=== PATIENT | female | born 1955 | race Caucasian/White ===

== ENCOUNTER 2017-02-07 23:22 | Observation (INO) | payer MEDICAID, MEDICARE, OTHER ==
[2017-02-08 00:38] LABS: Calcium 8.7 mg/dL (8.6-10.3); EGFR African American 91.5 (>60); EGFR Non-African American 71.1 (>60); Globulin 3.3 g/dL (2-4); Potassium 3.8 mmol/L (3.5-5.0); Total Bilirubin 0.5 mg/dL (0.2-1.0); Total Protein 7.3 g/dL (6.4-8.9)
[2017-02-08 00:40] LABS: Troponin I 0.01 ng/mL (<0.04)
[2017-02-08] MEDS ORDERED: methylPREDNISolone 125 MG* 2 ML VIAL IV ONE (00:41)
[2017-02-08] MEDS ORDERED: Albuterol/Ipratropium NEB.SOL* Albuterol 2.5 MG/Ipratropium 0.5 MG 3 ML INH ONE (00:41)
[2017-02-08] MEDS ORDERED: Azithromycin IV* 500 MG ADVAN VIAL IVPB ONE (00:41)
[2017-02-08] MEDS ORDERED: cefTRIAXone(*) 1 GM in NS 0.9% 50 ML* 50 ML IVPB ONE (00:41)
[2017-02-08 00:42] LABS: Hematocrit 42 % (35-47); Hemoglobin 14.7 g/dl (12.0-16.0); Mean Corpuscular HGB Conc 35 g/dl (31-36); Mean Corpuscular Hemoglobin 31 pg (27-31); Mean Corpuscular Volume 90 fL (80-97); Mean Platelet Volume 10 um3 (7.4-10.4); Red Blood Count 4.71 10^6/ul (4.0-5.4); Red Cell Distribution Width 13 % (10.5-15); White Blood Count 7.8 10^3/ul (3.5-10.8)
[2017-02-08 00:48] LABS: Comments Flag Yes
[2017-02-08 00:50] LABS: Add Diff/Slide Review? Slide Review Added
[2017-02-08] MEDS: Oseltamivir CAP* 75 MG PO SCH ×3 (03:10→21:07)
[2017-02-08] MEDS ORDERED: Morphine ORAL.SOLN 10 mg* 2 MG/ML UDC 5 ml PO PRN (04:41)
[2017-02-08] MEDS: NS 0.9% w/ 20 Meq KCL 1000 ML* 1,000 ML IV SCH ×2 (05:32→14:18)
[2017-02-08] MEDS: Insulin GLARGINE(*) 1 UNITS UNIT SUBCUT SCH (06:10)
--- NOTE | 2017-02-08 07:40 | PN ---
Subjective Date of Service: 02/08/17 Interval History: Ms. Jolly complains of feeling tired and "worn out." She also reports cough that is nonproductive. She is a continued 1/2 pack a day smoker. She denies other complaint including chest pain, nausea, or abdominal pain and is tolerating oral intake well. Objective Active Medications: Atorvastatin Calcium (Lipitor*) 20 mg PO 1700 [facility] Celecoxib (Celebrex Cap*) 200 mg PO QAM [facility] Glipizide (Glucotrol Xl*) 5 mg PO QAM [facility] Heparin Sodium (Porcine) (Heparin Vial(*)) 5,000 units SUBCUT Q12HR [facility] Ceftriaxone Sodium 1,000 mg/ (Sodium Chloride) 50 mls @ 200 mls/hr IVPB Q24H [facility] Azithromycin 500 mg/ Sodium (Chloride) 250 mls @ 250 mls/hr IVPB Q24H [facility] Potassium Chloride/Sodium Chloride (Ns 0.9% W/ 20 Meq Kcl 1000 Ml*) 1,000 mls @ 125 mls/hr IV PER RATE [facility] Insulin Glargine (Lantus(*)) 30 units SUBCUT Q24H [facility] Insulin Human Lispro (Humalog*) 0 units SUBCUT ACHS [facility] Lisinopril (Prinivil Tab*) 5 mg PO DAILY [facility] Metformin HCl (Glucophage*) 250 mg PO 0800,1700 [facility] Morphine Sulfate (Ms Contin(*)) 60 mg PO BID [facility] Morphine Sulfate (Morphine Oral.Soln 10 Mg*) 15 mg PO Q4H PRN Omeprazole (Prilosec Cap*) 20 mg PO DAILY [facility] Oseltamivir Phosphate (Tamiflu Cap*) 75 mg PO BID [facility] Prednisone (Deltasone Tab*) 60 mg PO DAILY [facility] Vital Signs 02/08/17 02/08/17 02/08/17 04:23 04:31 05:24 Temperature 98.1 F 97.8 F Pulse Rate 89 94 97 Respiratory 16 13 21 Rate Blood Pressure 108/64 104/49 123/62 (mmHg) O2 Sat by Pulse 93 97 Oximetry Oxygen Devices in Use Now: Nasal Cannula Appearance: Female lying in bed in NAD, drowsy but answers all questions appropriately Eyes: No Scleral Icterus Ears/Nose/Mouth/Throat: Mucous Membranes Moist Neck: NL Appearance and Movements; NL JVP, Trachea Midline Respiratory: Symmetrical Chest Expansion and Respiratory Effort, - - rhonchi to right base Cardiovascular: NL Sounds; No Murmurs; No JVD, No Edema Abdominal: NL Sounds; No Tenderness; No Distention Lymphatic: No Cervical Adenopathy Extremities: No Edema Skin: No Rash or Ulcers Neurological: NL Muscle Strength and Tone, - - Drowsy but oriented x 3 Nutrition: Taking PO's Result Diagrams: 02/08/17 00:09 02/08/17 00:09 Additional Lab and Data: Lab Results 02/08/17 02/08/17 02/08/17 Range/Units 00:09 00:09 00:09 WBC 7.8 (3.5-10.8) 10^3/ul RBC 4.71 (4.0-5.4) 10^6/ul Hgb 14.7 (12.0-16.0) g/dl Hct 42 (35-47) % MCV 90 (80-97) fL MCH 31 (27-31) pg MCHC 35 (31-36) g/dl RDW 13 (10.5-15) % Plt Count 87 L (150-450) 10^3/ul MPV 10 (7.4-10.4) um3 Neut % (Auto) 71.9 (38-83) % Lymph % (Auto) 19.1 L (25-47) % [place] % (Auto) 7.8 (1-9) % Eos % (Auto) 0.5 (0-6) % Baso % (Auto) 0.7 (0-2) % Absolute Neuts (auto) 5.6 (1.5-7.7) 10^3/ul Absolute Lymphs (auto) 1.5 (1.0-4.8) 10^3/ul Absolute Monos (auto) 0.6 (0-0.8) 10^3/ul Absolute Eos (auto) 0 (0-0.6) 10^3/ul Absolute Basos (auto) 0.1 (0-0.2) 10^3/ul Absolute Nucleated RBC 0 10^3/ul Nucleated RBC % 0.1 INR (Anticoag Therapy) 0.96 (0.89-1.11) APTT 31.0 (26.0-36.3) seconds Sodium 132 L (133-145) mmol/L Potassium 3.8 (3.5-5.0) mmol/L Chloride 99 L (101-111) mmol/L Carbon Dioxide 27 (22-32) mmol/L Anion Gap 6 (2-11) mmol/L BUN 18 (6-24) mg/dL Creatinine 0.82 (0.51-0.95) mg/dL Est GFR ( Amer) 91.5 (>60) Est GFR (Non-Af Amer) 71.1 (>60) BUN/Creatinine Ratio 22.0 H (8-20) Glucose 181 H (70-100) mg/dL Lactic Acid (0.5-2.0) mmol/L Calcium 8.7 (8.6-10.3) mg/dL Total Bilirubin 0.50 (0.2-1.0) mg/dL AST 24 (13-39) U/L ALT 29 (7-52) U/L Alkaline Phosphatase 69 (34-104) U/L Troponin I 0.01 (<0.04) ng/mL Total Protein 7.3 (6.4-8.9) g/dL Albumin 4.0 (3.2-5.2) g/dL Globulin 3.3 (2-4) g/dL Albumin/Globulin Ratio 1.2 (1-3) 02/08/17 Range/Units 00:09 WBC (3.5-10.8) 10^3/ul RBC (4.0-5.4) 10^6/ul Hgb (12.0-16.0) g/dl Hct (35-47) % MCV (80-97) fL MCH (27-31) pg MCHC (31-36) g/dl RDW (10.5-15) % Plt Count (150-450) 10^3/ul MPV (7.4-10.4) um3 Neut % (Auto) (38-83) % Lymph % (Auto) (25-47) % [place] % (Auto) (1-9) % Eos % (Auto) (0-6) % Baso % (Auto) (0-2) % Absolute Neuts (auto) (1.5-7.7) 10^3/ul Absolute Lymphs (auto) (1.0-4.8) 10^3/ul Absolute Monos (auto) (0-0.8) 10^3/ul Absolute Eos (auto) (0-0.6) 10^3/ul Absolute Basos (auto) (0-0.2) 10^3/ul Absolute Nucleated RBC 10^3/ul Nucleated RBC % INR (Anticoag Therapy) (0.89-1.11) APTT (26.0-36.3) seconds Sodium (133-145) mmol/L Potassium (3.5-5.0) mmol/L Chloride (101-111) mmol/L Carbon Dioxide (22-32) mmol/L Anion Gap (2-11) mmol/L BUN (6-24) mg/dL Creatinine (0.51-0.95) mg/dL Est GFR ( Amer) (>60) Est GFR (Non-Af Amer) (>60) BUN/Creatinine Ratio (8-20) Glucose (70-100) mg/dL Lactic Acid 0.9 (0.5-2.0) mmol/L Calcium (8.6-10.3) mg/dL Total Bilirubin (0.2-1.0) mg/dL AST (13-39) U/L ALT (7-52) U/L Alkaline Phosphatase (34-104) U/L Troponin I (<0.04) ng/mL Total Protein (6.4-8.9) g/dL Albumin (3.2-5.2) g/dL Globulin (2-4) g/dL Albumin/Globulin Ratio (1-3) Assess/Plan/Problems-Billing Assessment: Ms. Jolly is a 61 yo female with a PMH of DM, who was admitted on 02/07/17 with influenza. - Patient Problems (1) Influenza B Comment: T max 101.3, no leukocytosis. Continue tamiflu. Continue IV fluids x 1 additional liter. (2) Pneumonia Comment: R lower lobe with rhonchi, ? overlying bacterial pneumonia. Continue ceftriaxone and azithromcyin. Continue prednisone. (3) COPD (chronic obstructive pulmonary disease) Comment: No evidence of acute exaberation. (4) Diabetes Comment: BGs elevated. Continue lantus in substitute for NPH with lispro SSI coverage, adjust as needed. (5) Hyperlipidemia Comment: Continue atorvastatin. (6) Chronic pain Comment: Continue morphine. (7) Hypertension Comment: BP well controlled, continue lisinopril. (8) Full code status (9) DVT prophylaxis Comment: Heparin SQ. Status and Disposition: Inpatient. Anticipate discharge to home when medically stable.
--- NOTE | 2017-02-08 07:45 | RAD ---
HISTORY: Dizziness COMPARISONS: None VIEWS:1: Single frontal portable view of the chest at 12:20 AM FINDINGS: LINES AND TUBES: None. CARDIOMEDIASTINAL SILHOUETTE: The cardiomediastinal silhouette is normal for portable technique. PLEURA: The costophrenic angles are sharp. No pleural abnormalities are noted. LUNG PARENCHYMA: The lungs are clear. ABDOMEN: The upper abdomen is clear. There is no subphrenic gas. BONES AND SOFT TISSUES: No bone or soft tissue abnormalities are noted. IMPRESSION: NO ACTIVE CARDIOPULMONARY DISEASE.
[2017-02-08] MEDS ORDERED: metFORMIN* 500 MG TAB PO SCH (08:00)
[2017-02-08] MEDS ORDERED: Acetaminophen TAB* 325 MG PO PRN (08:11)
[2017-02-08] MEDS: Insulin LISPRO* 1 UNITS UNIT SUBCUT SCH ×4 (08:25→22:06)
[2017-02-08] MEDS: Heparin VIAL(*) 5000 UNITS/ML VIAL (FIVE THOUSAND) SUBCUT SCH ×2 (08:26→21:11)
[2017-02-08] MEDS: Morphine TAB Extended Release (*) 30 MG TAB.ER PO SCH ×2 (08:27→21:07)
[2017-02-08] MEDS: predniSONE TAB* 20 MG PO SCH (08:28)
[2017-02-08] MEDS: Lisinopril TAB* 5 MG PO SCH (08:29)
[2017-02-08] MEDS: celeCOXIB CAP* 200 MG PO SCH (08:43)
[2017-02-08] MEDS ORDERED: glipiZIDE TAB.XL* 5 MG PO SCH (09:00)
[2017-02-08] MEDS: Omeprazole CAP* 20 MG PO SCH (09:28)
[2017-02-08] MEDS ORDERED: Docusate CAP* 100 MG PO PRN (09:56)
[2017-02-08] MEDS ORDERED: Senna TAB PO PRN (09:56)
[2017-02-08] MEDS ORDERED: Polyethylene Glycol 3350* 17 GM PACKET PO PRN (09:57)
[2017-02-08] MEDS ORDERED: Atorvastatin* 20 MG TAB PO SCH (17:00)
--- NOTE | 2017-02-08 20:48 | ED ---
Chetan Mckeon Alok, scribed for Kapil Blair MD on 02/08/17 at 0058 . Dizziness - HPI Summary HPI Summary: 61F presents to the ED for dizziness and lightheadedness today. Pt states she has had a non-productive cough as well as rhinorrhea, myaliga, and a YAP for the past 3 days. Pt also notes nausea and ear pain. Pt presents with a fever of 101.3F. Pt denies vomit or diarrhea. PMHx includes IDDM and HLD. Pt smokes tobacco cigarettes. - History Of Current Complaint Chief Complaint: EDDizziness Stated Complaint: WEAKNESS/AMS Time Seen by Provider: 02/08/17 00:30 Hx Obtained From: Patient Onset/Duration: Still Present Timing: Constant Severity Initially: Moderate Severity Currently: Moderate Character: Lightheaded, Dizzy Associated Signs And Symptoms: Positive: Nausea, Fever - 101.3, Other: - cough, rhinorrhea, myalgia, YAP, ear pain - Allergies/Home Medications Allergies/Adverse Reactions: Allergies Allergy/AdvReac Type Severity Reaction Status Date / Time No Known Allergies Allergy Verified 02/08/17 02:35 Home Medications: Home Medications Atorvastatin* [Lipitor*] 20 mg PO 1700 02/08/17 [History Confirmed 02/08/17] Insulin Lispro Protamine & Lis [Humalog Mix 75/25 (75-25) 100 Unit/ml] 26 SUBCUT BID 02/08/17 [History] Lisinopril [Zestril 5 MG-] 5 mg PO DAILY 02/08/17 [History Confirmed 02/08/17] Omeprazole [Prilosec] 20 mg PO 02/08/17 [History] PMH/Surg Hx/FS Hx/Imm Hx Endocrine/Hematology History: Reports: Hx Diabetes - Type 2-ORAL MEDICATION, Hx Anemia - BLOOD TRANSFUSION A BABY Respiratory History: Reports: Hx Chronic Obstructive Pulmonary Disease (COPD) GI History: Reports: Hx Gastroesophageal Reflux Disease - IN THE PAST-1996 History: Reports: Hx Kidney Infection - LAST 6 MONTHS AGO Musculoskeletal History: Reports: Hx Arthritis - RHEMATOID, Hx Back Problems - chronic pain, multiple surgeries Sensory History: Reports: Hx Contacts or Glasses - GLASSES Denies: Hx Hearing Aid Opthamlomology History: Reports: Hx Contacts or Glasses - GLASSES Neurological History: Reports: Other Neuro Impairments/Disorders - NERVE STIMULATOR- PLACED ON THE LEFT SIDE Psychiatric History: Reports: Hx Anxiety - HX OF IN 2008- NOT CURRENTLY, Hx Depression - HC OF IN 2008- NOT CURRENTLY - Surgical History Surgery Procedure, Year, and Place: Total hysterectomy-[place]. bilateral oopherectomy. cholecystectomy-2007. multiple back surgeries.1997, 1999,. 2006 -DORSAL COLUMN STIMULATOR IMPLANT. LEFT KNEE ARTHROSCOPY Hx Anesthesia Reactions: No Infectious Disease History: No Infectious Disease History: Denies: Traveled Outside the [place] in Last 30 Days - Family History Known Family History: Positive: Other - No - Malignant hypothermia - Social History Occupation: Disabled Alcohol Use: None Substance Use Type: Reports: None Hx Tobacco Use: Yes Smoking Status (MU): Light Every Day Tobacco Smoker Review of Systems Positive: Fever. Negative: Chills Negative: Erythema Positive: Ear Ache. Negative: Sore Throat Negative: Chest Pain Positive: Cough. Negative: Shortness Of Breath Positive: Nausea. Negative: Abdominal Pain, Vomiting, Diarrhea Negative: dysuria, hematuria Positive: Myalgia. Negative: Edema Negative: Rash Neurological: Other - Dizziness, Lightheadedness Positive: Headache All Other Systems Reviewed And Are Negative: Yes Physical Exam - Summary Physical Exam Summary: Constitutional: Well-developed, Well-nourished, Alert. (-) Distressed Skin: Warm, Dry HENT: Normocephalic; Atraumatic Eyes: Conjunctiva normal Neck: Musculoskeletal ROM normal neck. (-) JVD, (-) Stridor, (-) Tracheal deviation Cardio: Rhythm regular, rate normal, Heart sounds normal; Intact distal pulses; The pedal pulses are 2+ and symmetric. Radial pulses are 2+ and symmetric. (-) Murmur Pulmonary/Chest wall: Rhonchi in lung field bases bilaterally Abd: Soft, (-) Tenderness, (-) Distension, (-) Guarding, (-) Rebound Musculoskeletal: (-) Edema Lymph: (-) Cervical adenopathy Neuro: Alert, Oriented x3 Psych: Mood and affect Normal Triage Information Reviewed: Yes Vital Signs On Initial Exam: Initial Vitals Temp Pulse Resp BP Pulse Ox 99.7 F 98 18 119/63 96 02/07/17 23:32 02/07/17 23:32 02/07/17 23:32 02/07/17 23:32 02/07/17 23:32 Vital Signs Reviewed: Yes - Arturo Coma Scale Coma Scale Total: 15 Diagnostics - Vital Signs Vital Signs Temp Pulse Resp BP Pulse Ox 02/08/17 00:20 101.3 F 104 18 109/51 88 02/07/17 23:32 99.7 F 98 18 119/63 96 - Laboratory Lab Results: Lab Results 02/08/17 02/08/17 02/08/17 Range/Units 00:09 00:09 00:09 WBC 7.8 (3.5-10.8) 10^3/ul RBC 4.71 (4.0-5.4) 10^6/ul Hgb 14.7 (12.0-16.0) g/dl Hct 42 (35-47) % MCV 90 (80-97) fL MCH 31 (27-31) pg MCHC 35 (31-36) g/dl RDW 13 (10.5-15) % Plt Count 87 L (150-450) 10^3/ul MPV 10 (7.4-10.4) um3 Neut % (Auto) 71.9 (38-83) % Lymph % (Auto) 19.1 L (25-47) % [place] % (Auto) 7.8 (1-9) % Eos % (Auto) 0.5 (0-6) % Baso % (Auto) 0.7 (0-2) % Absolute Neuts (auto) 5.6 (1.5-7.7) 10^3/ul Absolute Lymphs (auto) 1.5 (1.0-4.8) 10^3/ul Absolute Monos (auto) 0.6 (0-0.8) 10^3/ul Absolute Eos (auto) 0 (0-0.6) 10^3/ul Absolute Basos (auto) 0.1 (0-0.2) 10^3/ul Absolute Nucleated RBC 0 10^3/ul Nucleated RBC % 0.1 INR (Anticoag Therapy) 0.96 (0.89-1.11) APTT 31.0 (26.0-36.3) seconds Sodium 132 L (133-145) mmol/L Potassium 3.8 (3.5-5.0) mmol/L Chloride 99 L (101-111) mmol/L Carbon Dioxide 27 (22-32) mmol/L Anion Gap 6 (2-11) mmol/L BUN 18 (6-24) mg/dL Creatinine 0.82 (0.51-0.95) mg/dL Est GFR ( Amer) 91.5 (>60) Est GFR (Non-Af Amer) 71.1 (>60) BUN/Creatinine Ratio 22.0 H (8-20) Glucose 181 H (70-100) mg/dL Lactic Acid (0.5-2.0) mmol/L Calcium 8.7 (8.6-10.3) mg/dL Total Bilirubin 0.50 (0.2-1.0) mg/dL AST 24 (13-39) U/L ALT 29 (7-52) U/L Alkaline Phosphatase 69 (34-104) U/L Troponin I 0.01 (<0.04) ng/mL Total Protein 7.3 (6.4-8.9) g/dL Albumin 4.0 (3.2-5.2) g/dL Globulin 3.3 (2-4) g/dL Albumin/Globulin Ratio 1.2 (1-3) 02/08/17 Range/Units 00:09 WBC (3.5-10.8) 10^3/ul RBC (4.0-5.4) 10^6/ul Hgb (12.0-16.0) g/dl Hct (35-47) % MCV (80-97) fL MCH (27-31) pg MCHC (31-36) g/dl RDW (10.5-15) % Plt Count (150-450) 10^3/ul MPV (7.4-10.4) um3 Neut % (Auto) (38-83) % Lymph % (Auto) (25-47) % [place] % (Auto) (1-9) % Eos % (Auto) (0-6) % Baso % (Auto) (0-2) % Absolute Neuts (auto) (1.5-7.7) 10^3/ul Absolute Lymphs (auto) (1.0-4.8) 10^3/ul Absolute Monos (auto) (0-0.8) 10^3/ul Absolute Eos (auto) (0-0.6) 10^3/ul Absolute Basos (auto) (0-0.2) 10^3/ul Absolute Nucleated RBC 10^3/ul Nucleated RBC % INR (Anticoag Therapy) (0.89-1.11) APTT (26.0-36.3) seconds Sodium (133-145) mmol/L Potassium (3.5-5.0) mmol/L Chloride (101-111) mmol/L Carbon Dioxide (22-32) mmol/L Anion Gap (2-11) mmol/L BUN (6-24) mg/dL Creatinine (0.51-0.95) mg/dL Est GFR ( Amer) (>60) Est GFR (Non-Af Amer) (>60) BUN/Creatinine Ratio (8-20) Glucose (70-100) mg/dL Lactic Acid 0.9 (0.5-2.0) mmol/L Calcium (8.6-10.3) mg/dL Total Bilirubin (0.2-1.0) mg/dL AST (13-39) U/L ALT (7-52) U/L Alkaline Phosphatase (34-104) U/L Troponin I (<0.04) ng/mL Total Protein (6.4-8.9) g/dL Albumin (3.2-5.2) g/dL Globulin (2-4) g/dL Albumin/Globulin Ratio (1-3) Result Diagrams: 02/08/17 00:09 02/08/17 00:09 Lab Statement: Any lab studies that have been ordered have been reviewed, and results considered in the medical decision making process. - Radiology CXR Xray Interpretation: Positive (See Comments) - Question of a left lower lobe infiltrate Radiology Interpretation Completed By: ED Physician - Dr. Rossy Coburn Course/Dx - Diagnoses Provider Diagnoses: Community acquired pneumonia, Hypoxemia - Provider Notifications Discussed Care Of Patient with: Dr. Felder (Hospitalist) @ [id number] - Will admit pt Discharge - Discharge Plan Condition: Stable Disposition: ADMITTED TO [facility] Referrals: Dino Figueroa MD [Primary Care Provider] - The documentation as recorded by the Chetan gee Alok accurately reflects the service I personally performed and the decisions made by Rossy garay Jerry, MD.
--- NOTE | 2017-02-08 22:08 | HP ---
ADMISSION HISTORY AND PHYSICAL: DATE OF ADMISSION: 02/08/17 CHIEF COMPLAINT: Cough. HISTORY OF PRESENT ILLNESS: Ms. Jolly is a 61-year-old woman with a history of COPD who reports developing malaise and fever suddenly 4 days prior to admission. She has had a dry cough and sinus congestion. She has had progressive shortness of breath and tachypnea observed by her . She does report that she had a flu vaccine this year. Today, the patient's noticed that she was mildly incoherent and had unstable gait, so he brought her to the emergency department. She has had some sick contacts; her [facility] and developed sickness 1 day prior to this patient's illness. PAST MEDICAL HISTORY: Includes: 1. Type 2 diabetes. 2. Chronic low back pain. 3. COPD. PAST SURGICAL HISTORY: 1. Lumbar laminectomy and fusion with rods in the past. 2. She also had hysterectomy. 3. Cholecystectomy. MEDICATIONS: On admission: 1. Combivent 1 inhalation q.4 hours p.r.n. 2. Lipitor 20 mg p.o. q.p.m. 3. Insulin NPH lispro mix 75/25 26 units subcutaneous b.i.d. 4. Lisinopril 5 mg p.o. q.a.m. 5. Metformin ER 500 mg p.o. q.p.m. 6. Morphine sulfate extended release 60 mg p.o. b.i.d. 7. Morphine sulfate IR 15 mg p.o. q.4 hours p.r.n. pain. 8. Omeprazole 20 mg p.o. daily. 9. Celebrex 200 mg p.o. q.a.m. 10. Glipizide 5 mg p.o. q.a.m. ALLERGIES: None. FAMILY HISTORY: Notable for son dying of murder. Mother of dementia. Father of liver cancer. Mother also had ovarian cancer and breast cancer, but ended up dying of dementia. SOCIAL HISTORY: She is disabled due to her spinal issues. She lives with her partner. She has 3 children. She smokes a half pack a day of cigarettes. No alcohol or drug use. REVIEW OF SYSTEMS: The patient denies any weight loss, but she has not been eating well for the past few days. The patient denies any chest pain or palpitations. The patient denies any hemoptysis, but has had cough and shortness of breath. The patient reports nausea, but no vomiting. The patient describes diffuse arthralgias, but no joint swelling. Remainder of 14-point review of systems negative other than mentioned in the HPI. PHYSICAL EXAMINATION GENERAL: She is an ill-appearing older woman in no acute distress. Her skin is diaphoretic. VITAL SIGNS: Temperature 38.5, pulse 103 to 108, respirations 16, blood pressure is 93/45. O2 sat is 89% to 91%, up to 96% on 3 L of oxygen. HEENT: Her oropharynx is moist. No lesions. NECK: No JVD. No carotid bruit. No thyromegaly. No adenopathy. LUNGS: Rhonchi and wheezes at the bases bilaterally. HEART: Tachycardic. Regular. No murmurs. ABDOMEN: Soft, nontender. Positive bowel sounds. No hepatosplenomegaly. EXTREMITIES: No peripheral edema. Dorsalis pedis pulses are 1+ bilaterally. NEUROLOGIC: Cranial nerves II through XII are intact. Motor strength is 5/5. Deep tendon reflexes are symmetric. She is alert and oriented x3. LABORATORY DATA AND DIAGNOSTIC STUDIES: Sodium 132, potassium 3.8, chloride 99 , bicarb 27, BUN 18, creatinine 0.82, glucose 181, calcium 8.7. Albumin 4.0, AST 24, ALT 29, bilirubin 0.5. Lactic acid 0.9. Troponin 0.01. INR 0.96. PTT 31.0. White count is 7.8, hemoglobin 14.7, hematocrit 42%, platelets are 87. Influenza swab is positive for influenza B, negative for influenza A. Chest x-ray is negative for infiltrates or effusions. ASSESSMENT AND PLAN: A 61-year-old woman with history of chronic obstructive pulmonary disease presenting with influenza pneumonia. She will be admitted to the hospital due to her new hypoxia requiring oxygenation. She will be treated for influenza with Tamiflu. We will also treat her for community-acquired pneumonia with ceftriaxone and azithromycin. For her chronic obstructive pulmonary disease exacerbation, she will continue her nebulizers and inhaled steroids and give her oral steroids as well to treat inflammation. The patient has tachycardia and mild hypotension, negative lactic acidosis and does not appear to be septic and certainly has systemic inflammatory response syndrome. She will be given normal saline with potassium supplementation to prevent hypovolemia and shock. The patient has thrombocytopenia which is new. This is likely due to her viral illness and will be rechecked in the morning. She can have subcutaneous heparin for her DVT prophylaxis while she is here. Code status is full. Healthcare proxy will be her partner. CC: Dr. Gonzalez * [id number]/CPS #: [id number] MTDD
[2017-02-08] MEDS ORDERED: Azithromycin IV(*) 500 MG in NS 0.9% 250 ML* 250 ML IVPB SCH (23:00)
[2017-02-09] MEDS ORDERED: cefTRIAXone VIAL(*) 1,000 MG in NS 0.9% 50 ML* 50 ML IVPB SCH ×2
[2017-02-09] MEDS: Insulin GLARGINE(*) 1 UNITS UNIT SUBCUT SCH (05:47)
[2017-02-09 06:45] LABS: Hematocrit 41 % (35-47); Hemoglobin 13.8 g/dl (12.0-16.0); Mean Corpuscular HGB Conc 34 g/dl (31-36); Mean Corpuscular Hemoglobin 31 pg (27-31); Mean Corpuscular Volume 91 fL (80-97); Mean Platelet Volume 10 um3 (7.4-10.4); Red Blood Count 4.46 10^6/ul (4.0-5.4); Red Cell Distribution Width 13 % (10.5-15); White Blood Count 8.2 10^3/ul (3.5-10.8)
[2017-02-09 06:57] LABS: Comments Flag Yes
[2017-02-09 07:01] LABS: BUN/Creatinine Ratio 28.4 (8-20); Calcium 8.9 mg/dL (8.6-10.3); EGFR Non-African American 80.1 (>60); Potassium 4.5 mmol/L (3.5-5.0)
--- NOTE | 2017-02-09 07:34 | PN ---
Subjective Date of Service: 02/09/17 Interval History: Ms. Jolly denies complaint and is eager for discharge to home. Objective Active Medications: Acetaminophen (Tylenol Tab*) 650 mg PO Q6H PRN Atorvastatin Calcium (Lipitor*) 20 mg PO 1700 JEB Celecoxib (Celebrex Cap*) 200 mg PO QAM JEB Docusate Sodium (Colace Cap*) 100 mg PO DAILY PRN Heparin Sodium (Porcine) (Heparin Vial(*)) 5,000 units SUBCUT Q12HR JEB Ceftriaxone Sodium 1,000 mg/ (Sodium Chloride) 50 mls @ 200 mls/hr IVPB Q24H JEB Azithromycin 500 mg/ Sodium (Chloride) 250 mls @ 250 mls/hr IVPB Q24H JEB Insulin Glargine (Lantus(*)) 30 units SUBCUT Q24H JEB Insulin Human Lispro (Humalog*) 0 units SUBCUT ACHS JEB Lisinopril (Prinivil Tab*) 5 mg PO DAILY [facility] Morphine Sulfate (Ms Contin(*)) 60 mg PO BID JEB Morphine Sulfate (Morphine Oral.Soln 10 Mg*) 15 mg PO Q4H PRN Omeprazole (Prilosec Cap*) 20 mg PO DAILY [facility] Oseltamivir Phosphate (Tamiflu Cap*) 75 mg PO BID [facility] Polyethylene Glycol/Electrolytes (Miralax*) 17 gm PO DAILY PRN Prednisone (Deltasone Tab*) 60 mg PO DAILY [facility] Senna (Senokot Tab*) 1 tab PO DAILY PRN Vital Signs 02/08/17 02/08/17 02/08/17 08:00 08:01 08:27 Temperature 98.3 F Pulse Rate 87 Respiratory 18 16 18 Rate Blood Pressure 124/70 (mmHg) O2 Sat by Pulse 96 96 Oximetry 02/08/17 02/08/17 02/08/17 10:27 16:00 16:37 Temperature 97.8 F Pulse Rate 74 Respiratory 18 Rate Blood Pressure 119/64 (mmHg) O2 Sat by Pulse 91 91 Oximetry 02/08/17 02/08/17 02/08/17 19:46 19:47 21:07 Temperature 98.3 F Pulse Rate 73 Respiratory 17 16 Rate Blood Pressure 137/60 (mmHg) O2 Sat by Pulse 94 Oximetry 02/08/17 02/09/17 02/09/17 23:07 00:19 03:22 Temperature 97.6 F 97.4 F Pulse Rate 72 69 Respiratory 16 18 17 Rate Blood Pressure 124/69 125/66 (mmHg) O2 Sat by Pulse 94 97 Oximetry Oxygen Devices in Use Now: None Appearance: Female lying in bed in NAD Eyes: No Scleral Icterus Ears/Nose/Mouth/Throat: Mucous Membranes Moist Respiratory: Symmetrical Chest Expansion and Respiratory Effort, Clear to Auscultation Cardiovascular: NL Sounds; No Murmurs; No JVD, No Edema Abdominal: NL Sounds; No Tenderness; No Distention Lymphatic: No Cervical Adenopathy Extremities: No Edema Skin: No Rash or Ulcers Neurological: Alert and Oriented x 3, NL Muscle Strength and Tone Nutrition: Taking PO's Result Diagrams: 02/09/17 06:00 02/09/17 06:00 Additional Lab and Data: Lab Results 02/08/17 02/08/17 02/08/17 Range/Units 00:09 00:09 00:09 WBC 7.8 (3.5-10.8) 10^3/ul RBC 4.71 (4.0-5.4) 10^6/ul Hgb 14.7 (12.0-16.0) g/dl Hct 42 (35-47) % MCV 90 (80-97) fL MCH 31 (27-31) pg MCHC 35 (31-36) g/dl RDW 13 (10.5-15) % Plt Count 87 L (150-450) 10^3/ul MPV 10 (7.4-10.4) um3 Neut % (Auto) 71.9 (38-83) % Lymph % (Auto) 19.1 L (25-47) % [place] % (Auto) 7.8 (1-9) % Eos % (Auto) 0.5 (0-6) % Baso % (Auto) 0.7 (0-2) % Absolute Neuts (auto) 5.6 (1.5-7.7) 10^3/ul Absolute Lymphs (auto) 1.5 (1.0-4.8) 10^3/ul Absolute Monos (auto) 0.6 (0-0.8) 10^3/ul Absolute Eos (auto) 0 (0-0.6) 10^3/ul Absolute Basos (auto) 0.1 (0-0.2) 10^3/ul Absolute Nucleated RBC 0 10^3/ul Nucleated RBC % 0.1 INR (Anticoag Therapy) 0.96 (0.89-1.11) APTT 31.0 (26.0-36.3) seconds Sodium 132 L (133-145) mmol/L Potassium 3.8 (3.5-5.0) mmol/L Chloride 99 L (101-111) mmol/L Carbon Dioxide 27 (22-32) mmol/L Anion Gap 6 (2-11) mmol/L BUN 18 (6-24) mg/dL Creatinine 0.82 (0.51-0.95) mg/dL Est GFR ( Amer) 91.5 (>60) Est GFR (Non-Af Amer) 71.1 (>60) BUN/Creatinine Ratio 22.0 H (8-20) Glucose 181 H (70-100) mg/dL Lactic Acid (0.5-2.0) mmol/L Calcium 8.7 (8.6-10.3) mg/dL Total Bilirubin 0.50 (0.2-1.0) mg/dL AST 24 (13-39) U/L ALT 29 (7-52) U/L Alkaline Phosphatase 69 (34-104) U/L Troponin I 0.01 (<0.04) ng/mL Total Protein 7.3 (6.4-8.9) g/dL Albumin 4.0 (3.2-5.2) g/dL Globulin 3.3 (2-4) g/dL Albumin/Globulin Ratio 1.2 (1-3) 02/08/17 Range/Units 00:09 WBC (3.5-10.8) 10^3/ul RBC (4.0-5.4) 10^6/ul Hgb (12.0-16.0) g/dl Hct (35-47) % MCV (80-97) fL MCH (27-31) pg MCHC (31-36) g/dl RDW (10.5-15) % Plt Count (150-450) 10^3/ul MPV (7.4-10.4) um3 Neut % (Auto) (38-83) % Lymph % (Auto) (25-47) % Alpine % (Auto) (1-9) % Eos % (Auto) (0-6) % Baso % (Auto) (0-2) % Absolute Neuts (auto) (1.5-7.7) 10^3/ul Absolute Lymphs (auto) (1.0-4.8) 10^3/ul Absolute Monos (auto) (0-0.8) 10^3/ul Absolute Eos (auto) (0-0.6) 10^3/ul Absolute Basos (auto) (0-0.2) 10^3/ul Absolute Nucleated RBC 10^3/ul Nucleated RBC % INR (Anticoag Therapy) (0.89-1.11) APTT (26.0-36.3) seconds Sodium (133-145) mmol/L Potassium (3.5-5.0) mmol/L Chloride (101-111) mmol/L Carbon Dioxide (22-32) mmol/L Anion Gap (2-11) mmol/L BUN (6-24) mg/dL Creatinine (0.51-0.95) mg/dL Est GFR ( Amer) (>60) Est GFR (Non-Af Amer) (>60) BUN/Creatinine Ratio (8-20) Glucose (70-100) mg/dL Lactic Acid 0.9 (0.5-2.0) mmol/L Calcium (8.6-10.3) mg/dL Total Bilirubin (0.2-1.0) mg/dL AST (13-39) U/L ALT (7-52) U/L Alkaline Phosphatase (34-104) U/L Troponin I (<0.04) ng/mL Total Protein (6.4-8.9) g/dL Albumin (3.2-5.2) g/dL Globulin (2-4) g/dL Albumin/Globulin Ratio (1-3) Assess/Plan/Problems-Billing Assessment: Ms. Jolly is a 61 yo female with a PMH of DM, who was admitted on 02/07/17 with influenza. - Patient Problems (1) Influenza B Comment: Patient breathing easy, afebrile. Continue tamiflu. (2) Pneumonia Comment: Cxray without infiltrate, no leukocytosis, afebrile. Do not think patient has a bacterial pneumonia in addition to flu. D/C ceftriaxone and azithromycin. D/C prednisone. (3) COPD (chronic obstructive pulmonary disease) Comment: No evidence of acute exaberation. (4) Diabetes Comment: Resume home meds. HgbA1c still pending. (5) Hyperlipidemia Comment: Continue atorvastatin. (6) Chronic pain Comment: Continue morphine. (7) Hypertension Comment: BP well controlled, continue lisinopril. (8) Full code status (9) DVT prophylaxis Comment: Heparin SQ. Status and Disposition: Inpatient. Discharge to home.
[2017-02-09 08:05] VITALS: BP 121/69
[2017-02-09] MEDS: Lisinopril TAB* 5 MG PO SCH (08:21)
[2017-02-09] MEDS: Morphine TAB Extended Release (*) 30 MG TAB.ER PO SCH (08:21)
[2017-02-09] MEDS: Omeprazole CAP* 20 MG PO SCH (08:23)
[2017-02-09] MEDS: predniSONE TAB* 20 MG PO SCH (08:23)
[2017-02-09] MEDS: Oseltamivir CAP* 75 MG PO SCH (08:23)
[2017-02-09] MEDS: Heparin VIAL(*) 5000 UNITS/ML VIAL (FIVE THOUSAND) SUBCUT SCH ×2 (08:23→08:34)
[2017-02-09] MEDS: celeCOXIB CAP* 200 MG PO SCH (08:23)
[2017-02-09] MEDS: Insulin LISPRO* 1 UNITS UNIT SUBCUT SCH (08:24)
--- NOTE | 2017-02-09 10:07 | DS ---
HOSPITAL MEDICINE DISCHARGE SUMMARY: DATE OF ADMISSION: 02/08/17 DATE OF DISCHARGE: 02/09/17 PRIMARY CARE PHYSICIAN: Dr. Gonzalez ATTENDING PHYSICIAN: Dr. Suleiman Catalan *(dictation provided by Suma Hernandez NP ) PRIMARY DIAGNOSIS: Flu. SECONDARY DIAGNOSES: 1. Type 2 diabetes. 2. Chronic low back pain. 3. Chronic obstructive pulmonary disease. PAST SURGICAL HISTORY: 1. Lumber laminectomy and fusion with rods in the past. 2. Hysterectomy. 3. Cholecystectomy. MEDICATIONS AT THE TIME OF DISCHARGE: 1. Tamiflu 75 mg p.o. b.i.d. 2. Combivent 1 inhalation q.4 hours p.r.n. 3. Lipitor 20 mg p.o. q.p.m. 4. Insulin NPH 75/25, 26 units subcutaneously b.i.d. 5. Lisinopril 5 mg p.o. q.a.m. 6. Metformin ER 500 mg p.o. q.p.m. 7. Morphine sulfate ER 60 mg p.o. b.i.d. 8. Morphine sulfate IR 15 mg p.o. q.4 hours p.r.n. pain. 9. Omeprazole 20 mg p.o. daily. 10. Celebrex 200 mg p.o. q.a.m. 11. Glipizide 5 mg p.o. q.a.m. HOSPITAL COURSE: Ms. Jolly is a 61-year-old female with a past medical history as outlined above, who presented to the emergency room on 02/08/17 with concern for cough. Please see the dictated H and P from Dr. Felder for complete details. In brief, the patient had reported malaise and fever starting about 4 days prior to admission. In the emergency room, she had a flu swab that was positive. Ms. Jolly was admitted to the hospital. Tamiflu was initiated. There was also concern that perhaps she had a concomitant bacterial pneumonia. Her chest x-ray , however, was negative for infiltrate per the opinion of Radiology. She also had no leukocytosis and has remained afebrile. She was treated with ceftriaxone and azithromycin initially, but I do not plan to continue that at the time of discharge. Ms. Jolly has remained afebrile, her vitals are stable, and she has no oxygen requirement. She is medically stable for discharge to home today. DISPOSITION: Home. DIET: Consistent carbohydrate. ACTIVITY: As tolerated. FOLLOWUP PLANS: Please follow up with Dr. Gonzalez regarding this acute hospitalization. TIME SPENT: Approximately 60 minutes were spent in the discharge of this patient, more than half the time spent with her at the bedside reviewing the events leading up to and during this hospitalization, performing the physical examination, and reviewing the plan of care. SUMA HERNANDEZ NP CC: Dr. Gonzalez* [id number]/CPS #: [id number] MTDD
== END 2017-02-09 10:20 | disposition home or self-care (01) ==
LOC: ED 23:22 → INTOOBSV 02-08 04:06 → MED 02-08 04:06
PROVIDERS: ADMIT Internal Medicine; ATTEND Internal Medicine
DX: J11.08 Influenza due to unidentified influenza virus with specified pneumonia (principal); J18.8 Other pneumonia, unspecified organism; R09.02 Hypoxemia; J44.9 Chronic obstructive pulmonary disease, unspecified; R06.02 Shortness of breath; R00.0 Tachycardia, unspecified; Z72.0 Tobacco use; I95.9 Hypotension, unspecified; E11.9 Type 2 diabetes mellitus without complications; Z79.4 Long term (current) use of insulin; Z79.84 Long term (current) use of oral hypoglycemic drugs; M54.5 Low back pain; G89.29 Other chronic pain; E78.5 Hyperlipidemia, unspecified; I10 Essential (primary) hypertension
CPT/HCPCS: 36415; 71010; 80048; 80053; 82947; 83036; 83605; 84484; 85025; 85610; 85730; 87040; 87502; 94640; 94760; 96365; 96367; 96375; 99284; A9270-GY; G0378; J0456; J0696; J1644; J2930; J7512

== ENCOUNTER 2018-09-23 17:01 | Inpatient (IN) | payer MEDICARE ==
[2018-09-23] MEDS ORDERED: NS 0.9% 1000 ML*IV.FLUID IV ONE (17:12)
[2018-09-23] MEDS ORDERED: cefTRIAXone(*) 1 GM in NS 0.9% 50 ML* 50 ML IVPB ONE (17:12)
[2018-09-23] MEDS ORDERED: Azithromycin IV(*) 500 MG in NS 0.9% 250 ML* 250 ML IVPB ONE (17:12)
[2018-09-23 17:44] LABS: ABS Basophils 0.1 10^3/ul (0-0.2); ABS Eosinophils 0 10^3/ul (0-0.6); ABS Lymphocytes 1.6 10^3/ul (1.0-4.8); ABS Monocytes 1.2 10^3/ul (0-0.8); ABS Neutrophils 9.4 10^3/ul (1.5-7.7); ABS Nucleated RBC 0 10^3/ul; Eosinophil % 0.3 %; Hematocrit 41 % (35-47); Hemoglobin 13.8 g/dl (12.0-16.0); Lymphocyte % 12.7 %; Mean Corpuscular HGB Conc 34 g/dl (31-36); Mean Corpuscular Hemoglobin 30 pg (27-31); Mean Corpuscular Volume 89 fL (80-97); Mean Platelet Volume 8.5 fL (7.4-10.4); Nucleated Red Blood Cells % 0; Platelet Count 295 10^3/ul (150-450); Red Blood Count 4.66 10^6/ul (4.00-5.40); Red Cell Distribution Width 15 % (10.5-15); White Blood Count 12.2 10^3/ul (3.5-10.8)
[2018-09-23 17:56] LABS: Activated Partial Thrombo Time 25.9 seconds (26.0-36.3); INR 1.05 (0.77-1.02)
--- NOTE | 2018-09-23 18:14 | ED ---
Shortness of Breath - HPI Summary HPI Summary: A 63 y/o female, accompanied by her Ed, presents to [facility] with a chief complaint of SOB since 09/15/18. She was referred from [address] [place] [address] when her CXR revealed PNA. The patient also c/o cough, headache, fever, chills and diaphoresis. She claims that she quit smoking on 09/19/18. She denies abd pain, N/V or dysuria. She has a Hx of DM and HTN. She reports that she did not get her flu shot. She reports a SHx of cholecystectomy. At triage she rated her pain as 0/10. SHe has a Hx of COPD. She denies using O2 or an inhaler at home. Vital signs in room HR: 99bpm, BP 110/67, O2 sat 93 when on O2, O2 sat falls from 93 to 86 in less than one minute when on room air. - History of Current Complaint Chief Complaint: EDShortnessOfBreath Time Seen by Provider: 09/23/18 17:11 Hx Obtained From: Patient, Family/Dredge Runner - Ed Onset/Duration: Sudden Onset, Lasting Days, Still Present Timing: Constant Current Severity: Mild Dyspnea At: Rest Aggrevating Factors: Nothing Alleviating Factors: Nothing Associated Signs & Symptoms: Cough (Productive) - Allergy/Home Medications Allergies/Adverse Reactions: Allergies Allergy/AdvReac Type Severity Reaction Status Date / Time No Known Allergies Allergy Verified 02/08/17 02:35 Home Medications: Home Medications Insulin Aspart Prot/Insuln Asp [Novolog Mix 70-30 Flexpen Syrn] 30 units SUBCUT BID 09/23/18 [History Confirmed 09/23/18] Lisinopril TAB* [Prinivil TAB*] 5 mg PO DAILY 09/23/18 [History Confirmed ] Metformin ER (NF) [Glucophage ER 750 MG TAB (NF)] 1,500 mg PO DAILY 09/23/18 [ History Confirmed 09/23/18] Morphine Sulfate [Morphine Sulfate ER] 60 mg PO Q12HR MDD 120 mg 09/23/18 [ History Confirmed 09/23/18] Morphine TAB (NF) 15 mg PO DAILY PRN MDD 15 mg 09/23/18 [History Confirmed 09/23] Omeprazole CAP* [Prilosec CAP* 20 MG] 20 mg PO DAILY 09/23/18 [History Confirmed 09/23/18] PMH/Surg Hx/FS Hx/Imm Hx Endocrine/Hematology History: Reports: Hx Diabetes - Type 2-ORAL MEDICATION, Hx Anemia - BLOOD TRANSFUSION A BABY Cardiovascular History: Reports: Hx Hypercholesterolemia, Hx Hypertension Respiratory History: Reports: Hx Chronic Obstructive Pulmonary Disease (COPD), Hx Seasonal Allergies GI History: Reports: Hx Gastroesophageal Reflux Disease - IN THE PAST-1996 History: Reports: Hx Kidney Infection - LAST 6 MONTHS AGO Musculoskeletal History: Reports: Hx Arthritis - RHEMATOID, Hx Back Problems - chronic pain, multiple surgeries Sensory History: Reports: Hx Cataracts, Hx Contacts or Glasses - GLASSES, Hx Hearing Problem - [place] Denies: Hx Hearing Aid Opthamlomology History: Reports: Hx Cataracts, Hx Contacts or Glasses - GLASSES Neurological History: Reports: Hx Headaches, Other Neuro Impairments/Disorders - NERVE STIMULATOR- PLACED ON THE LEFT SIDE Denies: Hx Spinal Cord Injury Psychiatric History: Reports: Hx Anxiety - HX OF IN 2007- NOT CURRENTLY, Hx Depression - HC OF IN 2007- NOT CURRENTLY - Surgical History Surgery Procedure, Year, and Place: Total hysterectomy-[place]. bilateral oopherectomy. cholecystectomy-2007. multiple back surgeries.1997, 1999,. 2006 -DORSAL COLUMN STIMULATOR IMPLANT. LEFT KNEE ARTHROSCOPY Hx Anesthesia Reactions: No Infectious Disease History: No Infectious Disease History: Denies: Hx of Known/Suspected MRSA, Traveled Outside the in Last 30 Days - Family History Known Family History: Positive: Other - No - Malignant hypothermia, Positive: cancer, DM, dementia - Social History Lives: With Family Alcohol Use: None Substance Use Type: Reports: None Hx Tobacco Use: Yes Smoking Status (MU): Light Every Day Tobacco Smoker Review of Systems Negative: Fever Negative: Chest Pain Positive: Shortness Of Breath, Cough Negative: Abdominal Pain, Vomiting, Nausea Negative: dysuria Positive: Headache All Other Systems Reviewed And Are Negative: Yes Physical Exam - Summary Physical Exam Summary: Appearance: Ill-appearing, moderate pain distress, well-nourished Skin: Warm, color reflects adequate perfusion, dry Head: Normal Head/Face inspection, atraumatic Eyes: Conjunctiva clear ENT: Normal inspection Neck: Supple, no nodes, no JVD Respiratory: Decreased breath sounds on the right side, expiratory wheezing throughout Cardio: RRR, No murmur, pulses normal, brisk capillary refill Abdomen: Soft, nontender Bowel sounds: Present Musculoskeletal: Strength Intact/ROM intact, no calf tenderness, no edema. Psychological: Normal Neuro: Alert, muscle tone normal, no focal deficit Triage Information Reviewed: Yes Vital Signs On Initial Exam: Initial Vitals Temp Pulse Resp BP Pulse Ox 98.7 F 105 18 103/61 93 09/23/18 17:03 09/23/18 17:03 09/23/18 17:03 09/23/18 17:03 09/23/18 17:03 Vital Signs Reviewed: Yes Diagnostics - Vital Signs Vital Signs Temp Pulse Resp BP Pulse Ox 09/23/18 17:17 92 09/23/18 17:10 98 103/61 93 09/23/18 17:03 98.7 F 105 18 103/61 93 - Laboratory Lab Results: Lab Results 09/23/18 09/23/18 09/23/18 Range/Units 17:31 17:31 17:36 WBC 12.2 H (3.5-10.8) 10^3/ul RBC 4.66 (4.00-5.40) 10^6/ul Hgb 13.8 (12.0-16.0) g/dl Hct 41 (35-47) % MCV 89 (80-97) fL MCH 30 (27-31) pg MCHC 34 (31-36) g/dl RDW 15 (10.5-15) % Plt Count 295 (150-450) 10^3/ul MPV 8.5 (7.4-10.4) fL Neut % (Auto) 76.5 % Lymph % (Auto) 12.7 % [place] % (Auto) 9.6 % Eos % (Auto) 0.3 % Baso % (Auto) 0.9 % Absolute Neuts (auto) 9.4 H (1.5-7.7) 10^3/ul Absolute Lymphs (auto) 1.6 (1.0-4.8) 10^3/ul Absolute Monos (auto) 1.2 H (0-0.8) 10^3/ul Absolute Eos (auto) 0 (0-0.6) 10^3/ul Absolute Basos (auto) 0.1 (0-0.2) 10^3/ul Absolute Nucleated RBC 0 10^3/ul Nucleated RBC % 0 ESR Pending INR (Anticoag Therapy) 1.05 H (0.77-1.02) APTT 25.9 L (26.0-36.3) seconds Influenza A (Rapid) Negative (Negative) Influenza B (Rapid) Negative (Negative) Result Diagrams: 09/23/18 17:31 09/23/18 17:31 Lab Statement: Any lab studies that have been ordered have been reviewed, and results considered in the medical decision making process. - Radiology Chest X-ray Radiology Interpretation Completed By: Radiologist Summary of Radiographic Findings: From [address] [place] [address]: Impression: Right upper lobe pneumonia and interstitial lung nodules versus artifact related to movements. ED provider has reviewed this imaging report. Course/Dx - Course Course Of Treatment: A 63 y/o female, accompanied by her Ed, presents to [facility] with a chief complaint of SOB since 09/15/18. The physical exam revealed decreased breath sounds on the right side and expiratory wheezing throughout. The patient was sent from [address] [place] [address] and had a CXR. The [address] [place] [address] CXR Impression: Right upper lobe pneumonia and interstitial lung nodules versus artifact related to movements. In the room her O2 sat falls from 93 to 86 in less than one minute when on room air. Dx: COPD exacerbation, acute respiratory failure with hypoxia, right upper lobe PNA. The case was discussed with Dr. Acosta, hospitalist, who accepted the patient for admission. The patient agrees with this plan. - Diagnoses Provider Diagnoses: Right upper lobe pneumonia, Acute respiratory failure with hypoxia, COPD exacerbation - Physician Notifications Discussed Care of Patient With: Nohemi Acosta Time Discussed With Above Provider: 18:35 Instructed by Provider To: Admit As Inpatient - Critical Care Time Critical Care Time: 30-74 min - 30 mins Discharge - Sign-Out/Discharge Documenting (check all that apply): Patient Departure - admit - Discharge Plan Condition: Fair Disposition: ADMITTED TO [facility] - Attestation Statements Document Initiated by Scribe: Yes Documenting Scribe: Gregg Matias Provider For Whom Scribe is Documenting (Include Credential): Dr. Tricia Mayberry MD Scribe Attestation: Gregg Mckeon, scribed for Dr. Tricia Mayberry MD on 09/23/18 at 2144.
[2018-09-23 18:20] LABS: Albumin 3.8 g/dL (3.2-5.2); BUN/Creatinine Ratio 29.6 (8-20); C Reactive Protein 328.43 mg/L (<8.01); Calcium 9.7 mg/dL (8.6-10.3); EGFR Non-African American 51.4 (>60); Globulin 3.7 g/dL (2-4); Potassium 3.8 mmol/L (3.5-5.0); Total Bilirubin 0.8 mg/dL (0.2-1.0); Total Protein 7.5 g/dL (6.4-8.9)
[2018-09-23 18:22] LABS: Erythrocyte Sed Rate 98 mm/Hr (0-30)
[2018-09-23] MEDS ORDERED: methylPREDNISolone 125 MG* 2 ML VIAL IV ONE (18:57)
[2018-09-23] MEDS ORDERED: Albuterol 0.5% CONC NEB.SOL* 5 MG/ML 20 ml BOT INH ONE (18:58)
[2018-09-23] MEDS ORDERED: Albuterol 2.5 MG/3 ML NEB.SOL* (0.083%) INH PRN (19:41)
[2018-09-23] MEDS ORDERED: Ondansetron INJ* 2 MG/ML VIAL IV PRN (19:41)
[2018-09-23] MEDS ORDERED: Acetaminophen TAB* 325 MG PO PRN (19:41)
[2018-09-23] MEDS ORDERED: NS 0.9% 1000 ML* 1,000 ML IV SCH (19:45)
[2018-09-23] MEDS ORDERED: Morphine TAB (NF) 15 MG TAB PO PRN (19:46)
[2018-09-23] MEDS ORDERED: Dextrose 50% Syringe 50 ML* 25 GM/50 ML SYRINGE IV PUSH PRN (19:52)
[2018-09-23] MEDS ORDERED: oxyCODONE TAB* 5 MG TAB PO PRN (20:16)
[2018-09-23] MEDS: Mometasone/Formoter 100/5 MDI INH SCH (20:27)
[2018-09-23] MEDS: Morphine TAB Extended Release (*) 30 MG TAB.ER PO SCH (21:23)
[2018-09-23] MEDS: Insulin LISPRO* 1 UNITS UNIT SUBCUT SCH (21:25)
[2018-09-23] MEDS: Benzonatate CAP* 100 MG PO SCH (21:25)
[2018-09-23] MEDS: Heparin VIAL(*) 5000 UNITS/ML VIAL (FIVE THOUSAND) SUBCUT SCH (21:25)
--- NOTE | 2018-09-23 23:00 | HP ---
CC: Dr. Marin Gonzalez * HISTORY AND PHYSICAL: DATE OF ADMISSION: 09/23/18 PRIMARY CARE PROVIDER: Dr. Marin Gonzalez. ATTENDING PHYSICIAN: Dr. Nohemi Acosta * (dictated by Adrienne Tan NP). CHIEF COMPLAINT: 1. Shortness of breath. 2. Cough. HISTORY OF PRESENT ILLNESS: Ms. Jolly is a 63-year-old female with past medical history of diabetes, COPD, and chronic back pain, who presents to the emergency room today with complaints of shortness of breath and cough. She and her significant other report that she began having headaches and experiencing fatigue just before Lisa. Around Lisa, she began to develop shortness of breath. She did experience some episodes of chills with diaphoresis , though did not check her temperature at that point. She also had a couple of episodes of emesis, though there have been no emesis or chills within the last few days. Her fatigue has been increasing and her significant other reports that she has not gone out of bed much in the last 5 days. He also reports that her appetite has been decreased and she has had poor fluid intake. She did try some [id number] Theraflu, which did relieve her symptoms for a short period of time. She has had a mild increase in her chronic back pain, although she is unable to further describe this. Her significant other also notes that she has made a couple of odd remarks, though she has not had any obvious altered mental status. She has had contact with her son, who also has similar symptoms. He has not sought any care for his symptoms. She reports that she did receive the pneumonia vaccine last year, though did not receive the flu vaccine this year. The patient went to urgent care today where she had a chest x-ray, which was concerning for right upper lobe pneumonia and she was sent to the emergency room. In the emergency room, the patient was noted to be hypoxic and requiring 4 liters of oxygen to maintain saturations in the low 90s. She was also noted to be tachycardic. She has been afebrile. She has had some tachypnea. She does have a slightly white blood count at 12.2 and her creatinine is elevated at 1.08. She has an elevated CPR and glucose, though she does have a negative lactic acid and was negative for influenza A and B. Because of the concern for pneumonia, the hospitalist service was asked to evaluate for admission. PAST MEDICAL HISTORY: 1. Diabetes mellitus type 2. 2. Chronic obstructive pulmonary disease. 3. Chronic back pain. PAST SURGICAL HISTORY: 1. Lumbar laminectomy with fusion and rods. 2. Hysterectomy. 3. Cholecystectomy. HOME MEDICATIONS: 1. Atorvastatin 20 mg p.o. daily. 2. Celebrex 200 mg p.o. daily. 3. NovoLog 70/30, 30 units subcu b.i.d. 4. Lisinopril 5 mg p.o. daily. 5. Metformin 1500 mg p.o. daily. 6. Morphine sulfate ER 60 mg p.o. q.12 hours. 7. Morphine IR 15 mg p.o. daily p.r.n. pain. 8. Omeprazole 20 mg p.o. daily. ALLERGIES: No known drug allergies. FAMILY HISTORY: The patient's mother had a history of ovarian cancer and breast cancer, though ultimately due to complications from dementia. She reports that her father from liver cancer. SOCIAL HISTORY: The patient has a 45-[id number]-lwkh smoking history. She reports that she quit 5 days ago and has no interest in restarting. She denies any alcohol or recreational drug use. She is retired. She lives with her significant other, Reagan. Reagan would be her surrogate decision maker in the event she is unable to make her own decisions. REVIEW OF SYSTEMS: An 11-point review of systems was performed and all the pertinent positive and negative findings are in the HPI. All other systems are negative. PHYSICAL EXAMINATION GENERAL: Ms. Jolly is a well-developed, well-nourished, overweight white woman, sitting up in bed, in no acute distress. She appears her stated age. VITAL SIGNS: Temp 99.0, heart rate 105, respiratory rate 23, oxygen saturation 93% on 4 L nasal cannula, blood pressure 109/63. HEENT: Head is atraumatic, normocephalic. Visual morales are grossly intact. Pupils are equal, round, and reactive to light and accommodation. Extraocular movements are intact. Slightly hard of hearing. Oral mucous membranes are slightly dry. Tonsils without erythema or exudate. NECK: Full range of motion. Thyroid not palpable. Trachea at midline. No lymphadenopathy. RESPIRATORY: Symmetrical chest expansion. No chest wall deformities. Scattered rhonchi throughout, though no wheezing. Frequent dry hacking cough. CARDIOVASCULAR: Regular rhythm, tachycardic. S1 and S2 present. No murmurs, rubs or gallops. No JVD. ABDOMEN: Soft, nontender to palpation. Bowel sounds normoactive throughout. EXTREMITIES: Skin warm and smooth bilaterally. No edema. No clubbing or cyanosis. Pedal pulses 2+ bilaterally. MUSCULOSKELETAL: Full range of motion. No pain or deformities. NEUROLOGIC: Awake, alert, and oriented x4. Cranial nerves II through XII are grossly intact. Moves all extremities. SKIN: Grossly intact without lesions. DIAGNOSTIC STUDIES/LAB DATA: WBC 12.2, RBC 4.66, hemoglobin 13.8, hematocrit 41, platelets 295. INR 1.05. Sodium 133, potassium 3.8, chloride 96, carbon dioxide 27, BUN 32, creatinine 1.08, glucose 300, lactic acid 1.7. Troponin 0.03. CRP 328. BNP 63. Influenza A negative, influenza B negative. Chest x-ray from [facility] reads as right upper lobe pneumonia and interstitial lung nodules versus artifact related to movement. ASSESSMENT AND PLAN: Ms. Jolly is a 63-year-old female with past medical history of diabetes, chronic obstructive pulmonary disease, and chronic back pain, who presents to the emergency room today with complaints of shortness of breath and cough, and was found to have community-acquired pneumonia. The patient will be admitted observation for: 1. Community-acquired pneumonia: The patient scores a 1 on the CURB-65 criteria putting her at low risk, although hospital admission is necessary at this time due to the presence of chronic obstructive pulmonary disease and hypoxia. At this point, the patient is requiring oxygen to maintain saturations in the 90s. We will continue oxygen as needed. She did receive azithromycin and ceftriaxone in the emergency room, and I will continue these. She did also receive a dose of Solu-Medrol in the emergency room. I have placed her on 20 mg of prednisone. I have ordered Tessalon for her cough. I have also ordered albuterol nebulizers. A procalcitonin is pending at this time. We will attempt to obtain a sputum culture, though the patient did not have a productive cough at this point. We will check urine for a strep, pneumo, and Legionella antigen. 2. Sepsis: The patient meets Sepsis-2 criteria, with leukocytosis, tachycardia , tachypnea, and a known source of infection. She also meets Sepsis-3 criteria with tachypnea. She has been given an appropriate fluid bolus in the emergency room and I will continue her on normal saline at 75 mL per hour x1 bag. She did receive ceftriaxone and Azithromycin, as noted above, and I will continue these. 3. Chronic obstructive pulmonary disease exacerbation: The patient does not take any home medications for her chronic obstructive pulmonary disease. She reports that she used to take inhalers, though has not been taking those for quite some time and typically does not experience any shortness of breath. At this point, she does appear to be having an exacerbation of her chronic obstructive pulmonary disease secondary to the pneumonia and is requiring oxygen to maintain saturations. As noted above, I have ordered nebulizers and prednisone in addition to the antibiotics. I have also placed the patient on Dulera, which she should likely continue to take after discharge. 4. Acute kidney injury: The patient's creatinine is elevated at 1.08. It appears as though her baseline is around 0.8. This acute kidney injury is secondary to hypovolemia and she has been bolused with appropriate IV fluids. We will continue IV fluids at this point and recheck a BMP in the morning. 5. Diabetes: The patient notes that her blood sugars have been increased during this illness. I will hold her metformin and her NovoLog 70/30 at this point. I have placed her on fingersticks a.c. and at bedtime and lispro sliding scale. I will also check an A1c. 6. Chronic back pain: I will continue the patient on her home dose of morphine extended release. Morphine immediate release is non-formulary, and so I have ordered oxycodone p.r.n. 7. Fluids, electrolytes, and nutrition: As noted above, the patient has received appropriate sepsis fluids in the emergency room and I will continue her on normal saline at 75 mL per hour x1 bag. Her sodium is slightly low, although not concerning at this point. I will recheck a BMP in the morning. I have ordered a consistent carbohydrate diet. 8. Code status: The patient will be a full code. 9. DVT prophylaxis: According to the DVT Risk Assessment, the patient scores a 4, putting her at high risk. I have ordered heparin subcu. TIME SPENT: Approximately 65 minutes were spent on this admission, greater than half of that time spent with the patient and her significant other obtaining my history, performing my physical exam, and reviewing the plan of care. This case has been reviewed with my attending, Dr. Acosta, who is in agreement with the plan of care. ADRIENNE TAN, ARMATURE INSPECTOR [id number]/CPS #: [id number] HARJINDER
[2018-09-24] MEDS: Heparin VIAL(*) 5000 UNITS/ML VIAL (FIVE THOUSAND) SUBCUT SCH ×3 (05:31→21:24)
[2018-09-24 06:05] LABS: ABS Basophils 0 10^3/ul (0-0.2); ABS Eosinophils 0 10^3/ul (0-0.6); ABS Lymphocytes 1.2 10^3/ul (1.0-4.8); ABS Monocytes 0.4 10^3/ul (0-0.8); ABS Neutrophils 8.6 10^3/ul (1.5-7.7); ABS Nucleated RBC 0 10^3/ul; Eosinophil % 0 %; Hematocrit 37 % (35-47); Hemoglobin 12.4 g/dl (12.0-16.0); Lymphocyte % 11.6 %; Mean Corpuscular HGB Conc 34 g/dl (31-36); Mean Corpuscular Hemoglobin 30 pg (27-31); Mean Corpuscular Volume 89 fL (80-97); Mean Platelet Volume 8.6 fL (7.4-10.4); Nucleated Red Blood Cells % 0; Platelet Count 271 10^3/ul (150-450); Red Blood Count 4.14 10^6/ul (4.00-5.40); Red Cell Distribution Width 14 % (10.5-15); White Blood Count 10.2 10^3/ul (3.5-10.8)
[2018-09-24 06:30] LABS: BUN/Creatinine Ratio 31.9 (8-20); Calcium 9.4 mg/dL (8.6-10.3); EGFR Non-African American 86.2 (>60); Potassium 4.2 mmol/L (3.5-5.0)
[2018-09-24] MEDS: Mometasone/Formoter 100/5 MDI INH SCH ×2 (07:51→20:05)
[2018-09-24] MEDS: Lisinopril TAB* 5 MG PO SCH (07:57)
[2018-09-24] MEDS: Morphine TAB Extended Release (*) 30 MG TAB.ER PO SCH ×2 (07:57→21:22)
[2018-09-24] MEDS: Benzonatate CAP* 100 MG PO SCH ×2 (07:58→21:22)
[2018-09-24] MEDS: celeCOXIB CAP* 200 MG PO SCH (07:58)
[2018-09-24] MEDS: Insulin LISPRO* 1 UNITS UNIT SUBCUT SCH ×4 (08:00→21:23)
[2018-09-24] MEDS ORDERED: Insulin ISOPH/REG 70/30 (*) 1 UNITS UNIT SUBCUT SCH (08:00)
[2018-09-24] MEDS: predniSONE TAB* 20 MG PO SCH (08:01)
[2018-09-24] MEDS: Omeprazole CAP (NF) 20 MG CAP.DR PO SCH (08:12)
--- NOTE | 2018-09-24 15:51 | PN ---
Objective Active Medications: Acetaminophen (Tylenol Tab*) 650 mg PO Q4H PRN PRN Reason: FEVER/PAIN Albuterol (Ventolin 2.5 Mg/3 Ml Neb.Veronica*) 2.5 mg INH RT.[id number] AWAKE PRN PRN Reason: sob/wheezing Atorvastatin Calcium (Lipitor*) 20 mg PO 1700 [facility] Benzonatate (Tessalon Cap*) 100 mg PO BID [facility] Last Admin: 09/24/18 07:58 Dose: 100 mg Celecoxib (Celebrex Cap*) 200 mg PO QAM [facility] Last Admin: 09/24/18 07:58 Dose: 200 mg Dextrose (D50w Syringe 50 Ml*) 12.5 gm IV PUSH .FOR FS < 60 - SS PRN PRN Reason: FS < 60 Heparin Sodium (Porcine) (Heparin Vial(*)) 5,000 units SUBCUT Q8HR [facility] Last Admin: 09/24/18 12:17 Dose: 5,000 units Ceftriaxone Sodium 1 gm/ (Sodium Chloride) 50 mls @ 200 mls/hr IVPB Q24H [facility] Azithromycin 500 mg/ Sodium (Chloride) 250 mls @ 250 mls/hr IVPB Q24H [facility] Insulin Human Lispro (Humalog*) 0 units SUBCUT ACHS [facility]; Protocol Last Admin: 09/24/18 12:18 Dose: 12 unit Lisinopril (Prinivil Tab*) 5 mg PO DAILY [facility] Last Admin: 09/24/18 07:57 Dose: 5 mg Mometasone Furoate/Formoterol Fumar (Dulera 100/5 Mdi*) 2 puff INH BID [facility] Last Admin: 09/24/18 07:51 Dose: 2 puff Morphine Sulfate (Ms Contin(*)) 60 mg PO Q12HR [facility] Last Admin: 09/24/18 07:57 Dose: 60 mg Omeprazole (Prilosec Cap*) 20 mg PO DAILY@0730 [facility] Last Admin: 09/24/18 08:12 Dose: 20 mg Ondansetron HCl (Zofran Inj*) 4 mg IV Q4H PRN PRN Reason: NAUSEA/VOMITING Oxycodone HCl (Roxycodone Tab*) 5 mg PO Q6H PRN PRN Reason: PAIN Prednisone (Deltasone Tab*) 20 mg PO DAILY [facility] Last Admin: 01/03/19 08:01 Dose: 20 mg Vital Signs - 8 hr 09/24/18 09/24/18 09/24/18 07:56 07:57 08:00 Temperature 97.8 F Pulse Rate 80 Respiratory 16 18 18 Rate Blood Pressure 136/83 (mmHg) O2 Sat by Pulse 94 94 Oximetry 09/24/18 09/24/18 10:48 11:31 Temperature 97.8 F Pulse Rate 72 Respiratory 18 16 Rate Blood Pressure 145/73 (mmHg) O2 Sat by Pulse 94 Oximetry Oxygen Devices in Use Now: Nasal Cannula Result Diagrams: 09/24/18 05:45 09/24/18 05:45 Additional Lab and Data: Lab Results 09/23/18 09/23/18 09/23/18 Range/Units 17:31 17:31 17:36 WBC 12.2 H (3.5-10.8) 10^3/ul RBC 4.66 (4.00-5.40) 10^6/ul Hgb 13.8 (12.0-16.0) g/dl Hct 41 (35-47) % MCV 89 (80-97) fL MCH 30 (27-31) pg MCHC 34 (31-36) g/dl RDW 15 (10.5-15) % Plt Count 295 (150-450) 10^3/ul MPV 8.5 (7.4-10.4) fL Neut % (Auto) 76.5 % Lymph % (Auto) 12.7 % [place] % (Auto) 9.6 % Eos % (Auto) 0.3 % Baso % (Auto) 0.9 % Absolute Neuts (auto) 9.4 H (1.5-7.7) 10^3/ul Absolute Lymphs (auto) 1.6 (1.0-4.8) 10^3/ul Absolute Monos (auto) 1.2 H (0-0.8) 10^3/ul Absolute Eos (auto) 0 (0-0.6) 10^3/ul Absolute Basos (auto) 0.1 (0-0.2) 10^3/ul Absolute Nucleated RBC 0 10^3/ul Nucleated RBC % 0 ESR Pending INR (Anticoag Therapy) 1.05 H (0.77-1.02) APTT 25.9 L (26.0-36.3) seconds Influenza A (Rapid) Negative (Negative) Influenza B (Rapid) Negative (Negative) Microbiology and Other Data: Microbiology 09/23/18 17:21 Influenza Types A,B Antigen - Final Nasal Specimen received for Influenza A/B Molecular testing Assess/Plan/Problems-Billing Assessment: - Patient Problems (1) Pneumonia Code(s): J18.9 - PNEUMONIA, UNSPECIFIED ORGANISM SNOMED Code(s): 895993499 Comment: - Per ED report, CXR at Urgent Care showing infiltrate - Complicated by COPD, not being managed at home and current smoker - Had ceftriaxone and azithromycin in ED, continue azithromycin daily - Nebs PRN, add mucinex - Prednisone - Discussed smoking cessation (2) COPD (chronic obstructive pulmonary disease) Code(s): J44.9 - CHRONIC OBSTRUCTIVE PULMONARY DISEASE, UNSPECIFIED SNOMED Code(s): 18814392 Comment: - May be exacerbation superimposed on CAP - Duonebs Q6h, add flutter valve and mucinex - Continue prednisone and dulera - Start spiriva in AM - Will need outpatient PFTs and follow up (3) Chronic pain Code(s): G89.29 - OTHER CHRONIC PAIN SNOMED Code(s): 25705098 Comment: - Continue ER morphine, celebrex, oxycodone (4) Diabetes Code(s): E11.9 - TYPE 2 DIABETES MELLITUS WITHOUT COMPLICATIONS SNOMED Code(s) : 62007464 Comment: - Holding metformin, continue lispro SS and blood glucose ACHS while acutely ill - Sugars running high, start 70/30 insulin, 30 units BID (1:1 to home insulin novolog mix flex pen dose) (5) Hyperlipidemia Code(s): E78.5 - HYPERLIPIDEMIA, UNSPECIFIED SNOMED Code(s): 36060912 Comment: - Continue atorvastatin (6) Hypertension Code(s): I10 - ESSENTIAL (PRIMARY) HYPERTENSION SNOMED Code(s): 27922927 Comment: - continue lisinopril, stable (7) DVT prophylaxis Code(s): YZH0601 - SNOMED Code(s): 555086242 Comment: - Heparin SQ (8) Full code status Code(s): Z78.9 - OTHER SPECIFIED HEALTH STATUS SNOMED Code(s): 126230578 Status and Disposition: Inpatient, anticipate DC to home when medically optimized.
[2018-09-24] MEDS: Insulin ISOPH/REG 70/30 (*) 1 UNITS UNIT SUBCUT SCH (16:52)
[2018-09-24] MEDS ORDERED: Atorvastatin* 20 MG TAB PO SCH (17:00)
[2018-09-24 17:11] LABS: Urine Appearance Cloudy; Urine Bacteria Absent (Absent); Urine Bilirubin Negative (Negative); Urine Blood 1+ (Negative); Urine Color Yellow; Urine Glucose 3+(>=500 mg/dL) (Negative); Urine Ketones Negative (Negative); Urine Nitrite Negative (Negative); Urine Protein 2+(100 mg/dL) (Negative); Urine Red Blood Cell 1+(3-5/hpf) (Absent); Urine Specific Gravity 1.029 (1.010-1.030); Urine Urobilinogen Negative (Negative); Urine White Blood Cell Trace(0-5/hpf) (Absent)
[2018-09-24] MEDS ORDERED: cefTRIAXone(*) 1 GM in NS 0.9% 50 ML* 50 ML IVPB SCH (17:30)
[2018-09-24] MEDS ORDERED: Azithromycin IV(*) 500 MG in NS 0.9% 250 ML* 250 ML IVPB SCH (18:30)
[2018-09-24] MEDS: Albuterol/Ipratropium NEB.SOL* Albuterol 2.5 MG/Ipratropium 0.5 MG 3 ML INH SCH (19:12)
[2018-09-24] MEDS: guaiFENesin ER TAB 600 MG PO SCH (21:22)
[2018-09-25] MEDS: Albuterol/Ipratropium NEB.SOL* Albuterol 2.5 MG/Ipratropium 0.5 MG 3 ML INH SCH ×3 (00:57→12:26)
[2018-09-25] MEDS: Heparin VIAL(*) 5000 UNITS/ML VIAL (FIVE THOUSAND) SUBCUT SCH ×2 (05:49→13:38)
[2018-09-25] MEDS: Mometasone/Formoter 100/5 MDI INH SCH ×2 (06:18→07:32)
[2018-09-25] MEDS: guaiFENesin ER TAB 600 MG PO SCH (08:01)
[2018-09-25] MEDS: Lisinopril TAB* 5 MG PO SCH (08:01)
[2018-09-25] MEDS: Morphine TAB Extended Release (*) 30 MG TAB.ER PO SCH (08:01)
[2018-09-25] MEDS: Omeprazole CAP (NF) 20 MG CAP.DR PO SCH (08:01)
[2018-09-25] MEDS: Benzonatate CAP* 100 MG PO SCH (08:01)
[2018-09-25] MEDS: celeCOXIB CAP* 200 MG PO SCH (08:01)
[2018-09-25] MEDS: predniSONE TAB* 20 MG PO SCH (08:01)
[2018-09-25] MEDS: Insulin LISPRO* 1 UNITS UNIT SUBCUT SCH ×2 (08:24→11:43)
[2018-09-25] MEDS: Insulin ISOPH/REG 70/30 (*) 1 UNITS UNIT SUBCUT SCH (08:25)
[2018-09-25] MEDS ORDERED: Spiriva Inhaler DEVICE* 1 EACH DEVICE INH ONE (09:00)
[2018-09-25] MEDS ORDERED: Tiotropium CAP.INH* CAP.INH/18 MCG (USE ORDER SET !) INH SCH (09:00)
[2018-09-25 11:44] VITALS: BP 132/58
== END 2018-09-25 14:30 | disposition home or self-care (01) | DRG 871 ==
LOC: ED 17:01 → MED 19:41 → OBSVTOIN 09-24 13:00
PROVIDERS: ADMIT Hospitalist; ATTEND Internal Medicine
DX: A41.9 Sepsis, unspecified organism (principal); J18.8 Other pneumonia, unspecified organism; J44.1 Chronic obstructive pulmonary disease with (acute) exacerbation; N17.9 Acute kidney failure, unspecified; E11.9 Type 2 diabetes mellitus without complications; M54.9 Dorsalgia, unspecified; E78.5 Hyperlipidemia, unspecified; E66.3 Overweight; F17.210 Nicotine dependence, cigarettes, uncomplicated; Z68.32 Body mass index [BMI] 32.0-32.9, adult; Z79.4 Long term (current) use of insulin; Z79.891 Long term (current) use of opiate analgesic; Z79.899 Other long term (current) drug therapy; Z80.3 Family history of malignant neoplasm of breast; Z80.41 Family history of malignant neoplasm of ovary; Z80.0 Family history of malignant neoplasm of digestive organs
CPT/HCPCS: 36415; 80048; 80053; 81003; 81015; 82550; 83036; 83605; 83880; 84145; 84484; 85025; 85610; 85652; 85730; 86140; 87040; 87070; 87086; 87205; 87899; 94640; 99284; A9270-GY; J0456; J0696; J1644; J2930; J7512; J7611

== ENCOUNTER 2019-11-14 01:03 | Emergency (ER) | payer MEDICARE ==
[2019-11-14 01:09] VITALS: BP 133/85
[2019-11-14] MEDS ORDERED: Cephalexin CAP* 500 MG PO ONE (01:27)
--- NOTE | 2019-11-14 01:30 | ED ---
Skin Complaint - HPI Summary HPI Summary: 64-year-old female with significant past medical history type 2 diabetes presents to the emergency department today claiming of a surgical site infection on her left shoulder after lipoma removal status post 6 days ago. Patient denies drainage from the wound however there is redness and induration which began this morning. Patient has full range of motion of the shoulder and denies fever or chills. Patient is in no acute distress. Area of induration and erythema extends approximately 3 cm in diameter. Patient is otherwise well and denies fever, chest pain, abdominal pain, shortness breath, pain with urination, nausea, vomiting, diarrhea. - History of Current Complaint Chief Complaint: EDLacSutureRecheck Time Seen by Provider: 11/14/19 01:11 Stated Complaint: SHOULDER PAIN PER PT Hx Obtained From: Patient Onset/Duration: Started Hours Ago Skin Exposure Onset/Duration: Hours Ago Timing: Constant Onset Severity: Moderate Current Severity: Moderate Pain Intensity: 5 Pain Scale Used: 0-10 Numeric Skin Location: Discrete, Arm Associated Signs & Symptoms: Rash - Additional Pertinent History Primary Care Physician: [id number] - Allergy/Home Medications Allergies/Adverse Reactions: Allergies Allergy/AdvReac Type Severity Reaction Status Date / Time No Known Allergies Allergy Verified 06/25/19 08:52 Home Medications: Home Medications celeCOXIB CAP* [Celebrex CAP*] 200 mg PO QAM MDD 200 mg 06/17/13 [History Confirmed 10/02/18] Atorvastatin* [Lipitor 20 MG*] 20 mg PO 1700 02/08/17 [History Confirmed ] Insulin Aspart Prot/Insuln Asp [Novolog Mix 70-30 Flexpen 3 ML x 5 PENS] 30 units SUBCUT BID 09/23/18 [History Confirmed 10/02/18] Lisinopril TAB* [Prinivil TAB 5 MG*] 5 mg PO DAILY 09/23/18 [History Confirmed 10/02/18] Metformin ER (NF) [Glucophage ER 750 MG TAB (NF)] 1,500 mg PO DAILY 09/23/18 [ History Confirmed 10/02/18] Omeprazole CAP (NF) [Prilosec CAP* 20 MG] 20 mg PO DAILY 09/23/18 [History Confirmed 10/02/18] Albuterol HFA INHALER* [Ventolin HFA Inhaler*] 1 puff INH Q4H PRN 30 Days #1 mdi 09/25/18 [Rx Confirmed 10/02/18] Benzonatate CAP* [Tessalon 100 MG CAP*] 100 mg PO BID PRN 5 Days #10 cap [Rx Confirmed 10/02/18] Mometasone/Formoter 100/5 MDI* [Dulera 100/5 MDI*] 2 puff INH BID 30 Days #1 mdi 09/25/18 [Rx Confirmed 10/02/18] Spiriva HANDIHALER DEVICE (NF) [Tiotropium Inhaler DEVICE (NF)] 0 inh INH DAILY #1 device 09/25/18 [Rx Confirmed 10/02/18] guaiFENesin ER TAB [Mucinex*] 1,200 mg PO BID 5 Days #10 tab.er 09/25/18 [Rx Confirmed 10/02/18] Acetaminophen TAB* [Tylenol TAB*] 650 mg PO Q6H PRN tab 10/05/18 [Rx] Morphine TAB Extended Rel(*) [Ms Contin(*)] 30 mg PO BID tab.er 10/05/18 [Rx] Cephalexin CAP* [Keflex CAP*] 500 mg PO QID #28 cap 11/14/19 [Rx] PMH/Surg Hx/FS Hx/Imm Hx Endocrine/Hematology History: Reports: Hx Diabetes - Type 2-ORAL MEDICATION, Hx Anemia - BLOOD TRANSFUSION A BABY Cardiovascular History: Reports: Hx Hypercholesterolemia, Hx Hypertension Respiratory History: Reports: Hx Chronic Obstructive Pulmonary Disease (COPD), Hx Seasonal Allergies Denies: Hx Asthma GI History: Reports: Hx Gastroesophageal Reflux Disease - IN THE PAST-1996 History: Reports: Hx Kidney Infection Musculoskeletal History: Reports: Hx Arthritis - RHEMATOID, Hx Rheumatoid Arthritis, Hx Back Problems - chronic pain, multiple surgeries Sensory History: Reports: Hx Cataracts, Hx Contacts or Glasses, Hx Hearing Problem Denies: Hx Hearing Aid - [facility] Opthamlomology History: Reports: Hx Cataracts, Hx Contacts or Glasses Neurological History: Reports: Hx Headaches, Other Neuro Impairments/Disorders - NERVE STIMULATOR- PLACED ON THE LEFT SIDE Denies: Hx Spinal Cord Injury Psychiatric History: Reports: Hx Anxiety - HX OF IN 2007- NOT CURRENTLY, Hx Depression - Hx OF IN 2007- NOT CURRENTLY - Surgical History Surgery Procedure, Year, and Place: Total hysterectomy-[place]. bilateral oopherectomy. cholecystectomy-2007. multiple back surgeries.1997, 1999,. 2006 -DORSAL COLUMN STIMULATOR IMPLANT-LEFT HIP AREA. LEFT KNEE ARTHROSCOPY Hx Anesthesia Reactions: No Infectious Disease History: No Infectious Disease History: Denies: Hx of Known/Suspected MRSA, Traveled Outside the [place] in Last 30 Days - Family History Known Family History: Positive: Other - No - Malignant hypothermia - Social History Alcohol Use: None Substance Use Type: Reports: None Hx Tobacco Use: Yes Smoking Status (MU): Light Every Day Tobacco Smoker Review of Systems Constitutional: Negative Eyes: Negative ENT: Negative Cardiovascular: Negative Respiratory: Negative Gastrointestinal: Negative Genitourinary: Negative Musculoskeletal: Negative Positive: Rash Neurological/Mental Status: Negative Psychological: Normal All Other Systems Reviewed And Are Negative: Yes Physical Exam - Summary Physical Exam Summary: Patient is in no acute distress. There is a approximate 3 cm in diameter [place] of induration and erythema surrounding a surgical site on the left shoulder. No drainage. There is no lymphangitis. Patient has full range of motion of the left upper extremity. Patient is neurovascularly intact. No evidence of systemic toxicity. Triage Information Reviewed: Yes Vital Signs On Initial Exam: Initial Vitals Temp Pulse Resp BP Pulse Ox 98.1 F 116 20 133/85 98 11/14/19 01:05 11/14/19 01:05 11/14/19 01:05 11/14/19 01:05 11/14/19 01:05 Vital Signs Reviewed: Yes Appearance: Positive: Well-Appearing, No Pain Distress, Well-Nourished Skin: Positive: Warm, Skin Color Reflects Adequate Perfusion Eyes: Positive: EOMI, ABAD ENT: Positive: Hearing grossly normal Respiratory/Lung Sounds: Positive: Clear to Auscultation, Breath Sounds Present Cardiovascular: Positive: RRR, S1, S2 Musculoskeletal: Positive: Strength/ROM Intact Neurological: Positive: Sensory/Motor Intact, Alert, Oriented to Person Place, Time, Normal Gait, Facial Symmetry, Speech Normal Psychiatric: Positive: Normal, Affect/Mood Appropriate AVPU Assessment: Alert Procedures - Sedation Patient Received Moderate/Deep Sedation with Procedure: No Diagnostics - Vital Signs Vital Signs Temp Pulse Resp BP Pulse Ox 11/14/19 01:05 98.1 F 116 20 133/85 98 - Laboratory Lab Statement: Any lab studies that have been ordered have been reviewed, and results considered in the medical decision making process. Course/Dx - Course Course Of Treatment: Patient was evaluated in the emergency department today for surgical site infection. Patient is afebrile. No evidence of septic joint patient appeared to have complicated surgical site infection. Patient given 1 dose of Keflex in the emergency department as well as prescription for Keflex 4 times a day 7 days. Erythematous area marked with skin pen in the emergency department. Patient discharged with outpatient follow-up. - Differential Diagnoses - Skin Complaint Differential Diagnoses: Abscess, Cellulitis, Lymphangitis, Other - Surgical site infection. - Diagnoses Provider Diagnoses: Surgical site infection Discharge ED - Sign-Out/Discharge Documenting (check all that apply): Patient Departure - Discharge Plan Condition: Stable Disposition: HOME Prescriptions: Cephalexin CAP* [Keflex CAP*] 500 mg PO QID #28 cap Patient Education Materials: Surgical Site Infections (ED) Referrals: Marin Gonzalez MD [Primary Care Provider] - As Soon As Possible Additional Instructions: Please take antibiotics 4 times daily for 7 days. Please follow up with your primary care provider on Friday for further evaluation and management and wound check. Please contact your surgeon and make him aware of this. Please return to this emergency Department immediately if you develop any new or worsening symptoms such as redness extending past the marked line drawn today. - Billing Disposition and Condition Condition: STABLE Disposition: Home
== END 2019-11-14 01:50 | disposition home or self-care (01) ==
LOC: ED 01:03
DX: T81.40XA Infection following a procedure, unspecified, initial encounter (principal); E11.9 Type 2 diabetes mellitus without complications; D64.9 Anemia, unspecified; E78.00 Pure hypercholesterolemia, unspecified; I10 Essential (primary) hypertension; J44.9 Chronic obstructive pulmonary disease, unspecified; K21.9 Gastro-esophageal reflux disease without esophagitis; Z90.710 Acquired absence of both cervix and uterus; Z90.722 Acquired absence of ovaries, bilateral; Z90.49 Acquired absence of other specified parts of digestive tract; F17.200 Nicotine dependence, unspecified, uncomplicated; Z79.4 Long term (current) use of insulin; Z79.899 Other long term (current) drug therapy
CPT/HCPCS: 99282; A9270-GY

== ENCOUNTER 2021-07-19 12:34 | Inpatient (IN) ==
[2021-07-19] MEDS ORDERED: Lactated Ringers 1000 ml BAG 1,000 ML IV ONE ×2 (12:37)
[2021-07-19] MEDS ORDERED: LORazepam 2 mg VIAL 1 ml IV PUSH ONE ×4 (12:53→17:38)
[2021-07-19] MEDS ORDERED: Lorazepam PYXIS KEY PRN ×5 (12:53→19:18)
[2021-07-19] MEDS ORDERED: LORazepam 2 mg VIAL 1 ml ONE (12:54)
[2021-07-19 12:58] LABS: Hematocrit 42 % (35-47); Hemoglobin 14.5 g/dL (12.0-16.0); Mean Corpuscular HGB Conc 34 g/dL (31-36); Mean Corpuscular Hemoglobin 30 pg (27-31); Mean Corpuscular Volume 87 fL (80-97); Mean Platelet Volume 9.6 fL (7.4-10.4); Platelet Count 158 10^3/uL (150-450); Red Blood Count 4.88 10^6 /uL (3.70-4.87); Red Cell Distribution Width 15 % (10-15); White Blood Count 14.7 10^3/uL (3.5-10.8)
[2021-07-19 13:06] LABS: Activated Partial Thrombo Time 31.4 seconds (26.0-38.0); INR 1.51 (0.86-1.15)
[2021-07-19 13:23] LABS: ALT 14 U/L (7-52); AST 15 U/L (13-39); Albumin 3.8 g/dL (3.2-5.2); Albumin/Globulin Ratio 1.3 (1-3); Alkaline Phosphatase 48 U/L (35-149); Anion Gap 12 mmol/L (2-11); Blood Urea Nitrogen 38 mg/dL (6-24); C Reactive Protein 431.97 mg/L (<8.01); CO2 Carbon Dioxide 22 mmol/L (22-32); Calcium 9.2 mg/dL (8.6-10.3); Chloride 97 mmol/L (101-111); Glucose 173 mg/dL (70-100); Potassium 3.5 mmol/L (3.5-5.0); Sodium 131 mmol/L (135-145); Total Protein 6.8 g/dL (6.4-8.9)
[2021-07-19 13:26] LABS: Troponin I 0.03 ng/mL (<0.03)
[2021-07-19] MEDS ORDERED: Acetaminophen IV 1 GM/100ML 100 ML IV ONE (13:26)
[2021-07-19 13:32] LABS: RBC Morphology Normal (Normal)
[2021-07-19 13:33] LABS: ABS Lymphocytes 1.1 10^3/ul (1.0-4.8); ABS Monocytes 0.9 10^3/ul (0-0.8); ABS Neutrophils 12.7 10^3/ul (1.5-7.7); Eosinophil % 0.1 %; Lymphocyte % 7.3 %
[2021-07-19] MEDS ORDERED: Piperacillin/Tazobac ADVAN 3.375 GM in NS 0.9% 100 ml BAG 100 ML IV ONE (13:36)
[2021-07-19] MEDS ORDERED: Piperacillin/Tazobac 3.375 GM BAG ONE (13:42)
[2021-07-19 13:45] LABS: Urine Appearance Cloudy; Urine Bilirubin Negative (Negative); Urine Blood 2+ (Negative); Urine Color Amber; Urine Glucose 3+(>=500 mg/dL) (Negative); Urine Ketones Trace (Negative); Urine Nitrite Negative (Negative); Urine Protein 2+(100 mg/dL) (Negative); Urine Specific Gravity 1.029 (1.002-1.030); Urine Urobilinogen Negative (Negative)
[2021-07-19 13:49] LABS: Urine Bacteria 1+ (Absent); Urine Granular Casts Present (Absent); Urine Red Blood Cell 2+(6-10/hpf) (Absent); Urine White Blood Cell Trace(0-5/hpf) (Absent)
[2021-07-19 13:52] LABS: Rapid COVID-19 Molecular Undetected (Undetected)
[2021-07-19] MEDS ORDERED: Vancomycin 1,250 MG in NS 0.9% 250 ml 250 ML IVPB ONE (14:00)
[2021-07-19] MEDS ORDERED: Lactated Ringers 500 ml BAG 500 ML IV ONE (16:07)
[2021-07-19 16:44] LABS: Urine Benzodiazepine Screen None Detected (None Detect); Urine Cannabinoids Screen None Detected (None Detect); Urine Opiates Screen Presumptive Positive (None Detect)
[2021-07-19 16:46] LABS: Albumin 3.7 g/dL (3.2-5.2); Total Bilirubin 2.3 mg/dL (0.2-1.0)
[2021-07-19 16:52] LABS: Albumin/Globulin Ratio 1.2 (1-3); Total Protein 6.7 g/dL (6.4-8.9)
[2021-07-19] MEDS ORDERED: Norepinephrine 16MCG/ML IVPRE 4,000 MCG/250 ML BAG IV SCH (17:00)
[2021-07-19] MEDS ORDERED: Enoxaparin 40 MG/0.4 ML SYR SUBCUT SCH (17:00)
[2021-07-19] MEDS ORDERED: Azithromycin 500 mg/250 mL NS IVPB ONE (17:00)
[2021-07-19 17:40] LABS: Potassium 3.9 mmol/L (3.5-5.0)
[2021-07-19] MEDS ORDERED: Norepinephrine IV 4 MG in NS 0.9% 250 ml 246 ML IVPB SCH (18:00)
[2021-07-19] MEDS ORDERED: methylPREDNISolone 125 mg 2 ML VIAL IV SCH (18:00)
[2021-07-19] MEDS ORDERED: NS 0.9% 250 ml 250 ML ONE (18:05)
[2021-07-19 19:11] LABS: Troponin I 0.03 ng/mL (<0.03)
[2021-07-19] MEDS ORDERED: LORazepam 2 mg VIAL 1 ml IV PUSH PRN (19:18)
[2021-07-19] MEDS: Enoxaparin 40 MG/0.4 ML SYR SUBCUT SCH (19:52)
[2021-07-19] MEDS ORDERED: Dexmedetomidine 1,000 MCG in NS 0.9% 250 ml 240 ML IV SCH (20:00)
[2021-07-19] MEDS: ZOSYN 3.375 GM Q8H per EXTENDED INFUSION IV SCH (21:02)
[2021-07-20 05:11] LABS: Hematocrit 37 % (35-47); Hemoglobin 12.5 g/dL (12.0-16.0); Mean Corpuscular HGB Conc 34 g/dL (31-36); Mean Corpuscular Hemoglobin 29 pg (27-31); Mean Corpuscular Volume 88 fL (80-97); Mean Platelet Volume 9.8 fL (7.4-10.4); Platelet Count 144 10^3/uL (150-450); Red Blood Count 4.26 10^6 /uL (3.70-4.87); Red Cell Distribution Width 15 % (10-15); White Blood Count 11.1 10^3/uL (3.5-10.8)
[2021-07-20] MEDS: ZOSYN 3.375 GM Q8H per EXTENDED INFUSION IV SCH ×3 (05:36→20:22)
[2021-07-20 05:41] LABS: C Reactive Protein 506.87 mg/L (<8.01)
[2021-07-20 05:46] LABS: ABS Lymphocytes 0.8 10^3/ul (1.0-4.8); ABS Monocytes 0.3 10^3/ul (0-0.8); Lymphocyte % 6.9 %; RBC Morphology Normal (Normal)
[2021-07-20 08:49] LABS: Magnesium 1.6 mg/dL (1.9-2.7)
[2021-07-20 08:54] LABS: Phosphorus 3.1 mg/dL (2.5-5.0)
[2021-07-20] MEDS ORDERED: Hydrocortisone INJ 100 MG/2ML 2 ML VIAL IV SCH (09:00)
[2021-07-20] MEDS ORDERED: Dextrose 50% Syringe 50 ml 25 GM/50 ML SYRINGE IV PUSH PRN (09:38)
[2021-07-20] MEDS: Linezolid 600 MG IVPREMIX(*) 600 MG/300 ML BAG IVPB SCH ×2 (10:22→20:22)
[2021-07-20 10:45] LABS: Influenza A Molecular Negative (Negative); Influenza B Molecular Negative (Negative)
[2021-07-20 12:16] LABS: Calcium 8.9 mg/dL (8.6-10.3); Potassium 3.7 mmol/L (3.5-5.0)
[2021-07-20] MEDS ORDERED: Zosyn per Pharmacy NOTE FOLLOW UP SCH (13:00)
[2021-07-20] MEDS ORDERED: Magnesium Sulf 4 GM/100 ML IV 4,000 MG/100 ML BAG IVPB ONE (13:16)
[2021-07-20] MEDS ORDERED: KCL 20 MEQ/100 ML IVPREMIX 20 MEQ/100 ML BAG IV ONE (15:26)
[2021-07-20] MEDS: Enoxaparin 40 MG/0.4 ML SYR SUBCUT SCH (16:41)
[2021-07-20] MEDS ORDERED: Azithromycin 500 mg/250 ml NS 500 MG/250 ML BAG IVPB SCH (17:00)
[2021-07-20] MEDS: Heparin 5000 UNITS/ML 1 mL VIAL SUBCUT SCH (20:20)
[2021-07-21 04:22] LABS: Hematocrit 35 % (35-47); Hemoglobin 11.9 g/dL (12.0-16.0); Mean Corpuscular HGB Conc 34 g/dL (31-36); Mean Corpuscular Hemoglobin 30 pg (27-31); Mean Corpuscular Volume 88 fL (80-97); Mean Platelet Volume 9.8 fL (7.4-10.4); Platelet Count 160 10^3/uL (150-450); Red Blood Count 3.98 10^6 /uL (3.70-4.87); Red Cell Distribution Width 15 % (10-15); White Blood Count 9.3 10^3/uL (3.5-10.8)
[2021-07-21 04:40] LABS: Calcium 8.7 mg/dL (8.6-10.3); Magnesium 2.4 mg/dL (1.9-2.7); Phosphorus 1.7 mg/dL (2.5-5.0); Potassium 3.6 mmol/L (3.5-5.0)
[2021-07-21] MEDS: ZOSYN 3.375 GM Q8H per EXTENDED INFUSION IV SCH ×3 (04:52→20:52)
[2021-07-21] MEDS ORDERED: Potassium Phosphate IV 15 MMOLE in NS 0.9% 250 ml 250 ML IVPB ONE (06:52)
[2021-07-21] MEDS ORDERED: Pantoprazole VIAL 40 MG VIAL IV SCH (09:00)
[2021-07-21] MEDS ORDERED: Albuterol/Ipratropium RESP(NF) MDI (Combivent Respimat) INH PRN (09:01)
[2021-07-21] MEDS: Heparin 5000 UNITS/ML 1 mL VIAL SUBCUT SCH ×2 (09:08→20:49)
[2021-07-21] MEDS: Linezolid 600 MG IVPREMIX(*) 600 MG/300 ML BAG IVPB SCH (09:08)
[2021-07-21 17:10] LABS: Adenovirus Undetected (Undetected); Bordetella parapertussis Undetected (Undetected); Bordetella pertussis Undetected (Undetected); Chlamydophila pneumoniae Undetected (Undetected); Coronavirus 229E Undetected (Undetected); Coronavirus HKU1 Undetected (Undetected); Coronavirus NL63 Undetected (Undetected); Coronavirus OC43 Undetected (Undetected); Human Metapneumovirus Undetected (Undetected); Human Rhinovirus/Enterovirus Undetected (Undetected); Influenza A Undetected (Undetected); Influenza B Undetected (Undetected); Mycoplasmoides pneumoniae Undetected (Undetected); Parainfluenza Virus 1 Undetected (Undetected); Parainfluenza Virus 2 Undetected (Undetected); Parainfluenza Virus 3 Undetected (Undetected); Parainfluenza Virus 4 Undetected (Undetected); Respiratory Syncytial Virus Undetected (Undetected); Specimen Source NASOPHARYNGEAL SWAB
[2021-07-22] MEDS: ZOSYN 3.375 GM Q8H per EXTENDED INFUSION IV SCH ×3 (04:42→20:05)
[2021-07-22 05:34] LABS: Calcium 8.9 mg/dL (8.6-10.3); Magnesium 1.8 mg/dL (1.9-2.7); Phosphorus 2.2 mg/dL (2.5-5.0); Potassium 3.7 mmol/L (3.5-5.0)
[2021-07-22] MEDS ORDERED: Magnesium Sulfate IV 1GM/100ML 1 GM/100 ML BAG IV ONE (08:38)
[2021-07-22] MEDS ORDERED: Sodium Phosphate IV 15 MMOLE in NS 0.9% 250 ml 250 ML IV ONE (08:38)
[2021-07-22] MEDS: Heparin 5000 UNITS/ML 1 mL VIAL SUBCUT SCH ×2 (08:59→20:11)
[2021-07-22] MEDS: Insulin GLARGINE 100 un/ml 10 ml VIAL SUBCUT SCH (09:02)
[2021-07-22] MEDS: Morphine ER 30 mg TAB ** extended release PO PRN (12:56)
[2021-07-23] MEDS: Morphine ER 30 mg TAB ** extended release PO PRN ×2 (01:28→15:06)
[2021-07-23] MEDS: ZOSYN 3.375 GM Q8H per EXTENDED INFUSION IV SCH ×3 (03:54→22:48)
[2021-07-23 04:14] LABS: Hematocrit 38 % (35-47); Hemoglobin 12.7 g/dL (12.0-16.0); Mean Corpuscular HGB Conc 34 g/dL (31-36); Mean Corpuscular Hemoglobin 29 pg (27-31); Mean Corpuscular Volume 87 fL (80-97); Platelet Count 171 10^3/uL (150-450); Red Blood Count 4.35 10^6 /uL (3.70-4.87); Red Cell Distribution Width 15 % (10-15); White Blood Count 7.3 10^3/uL (3.5-10.8)
[2021-07-23 04:28] LABS: Calcium 8.5 mg/dL (8.6-10.3); Potassium 3.6 mmol/L (3.5-5.0)
[2021-07-23 05:24] LABS: ABS Eosinophils 0.1 10^3/ul (0-0.6); ABS Lymphocytes 1.6 10^3/ul (1.0-4.8); ABS Monocytes 0.7 10^3/ul (0-0.8); ABS Neutrophils 4.9 10^3/ul (1.5-7.7); Eosinophil % 0.8 %; Lymphocyte % 22.7 %
[2021-07-23] MEDS: Heparin 5000 UNITS/ML 1 mL VIAL SUBCUT SCH ×2 (09:02→21:01)
[2021-07-23] MEDS: Insulin GLARGINE 100 un/ml 10 ml VIAL SUBCUT SCH (09:02)
[2021-07-23] MEDS ORDERED: cefTRIAXone 2 GM ADDV.VIAL 2 GM in NS 0.9% 100 ml BAG 100 ML IV SCH (10:30)
[2021-07-23] MEDS ORDERED: DOXYcycline 100 MG in NS 0.9% 250 ml 250 ML IVPB SCH (11:30)
[2021-07-23] MEDS ORDERED: Iodixanol (CONTRAST) 320 MG/ML 100 ML SDV IV ONE (12:22)
[2021-07-23] MEDS ORDERED: Zosyn per Pharmacy NOTE FOLLOW UP SCH (14:00)
[2021-07-24] MEDS: Morphine ER 30 mg TAB ** extended release PO PRN (03:16)
[2021-07-24 05:55] LABS: Hematocrit 35 % (35-47); Hemoglobin 12.1 g/dL (12.0-16.0); Mean Corpuscular HGB Conc 34 g/dL (31-36); Mean Corpuscular Hemoglobin 30 pg (27-31); Mean Corpuscular Volume 86 fL (80-97); Mean Platelet Volume 8.9 fL (7.4-10.4); Platelet Count 162 10^3/uL (150-450); Red Blood Count 4.08 10^6 /uL (3.70-4.87); Red Cell Distribution Width 14 % (10-15); White Blood Count 6.8 10^3/uL (3.5-10.8)
[2021-07-24 06:05] LABS: Calcium 8.6 mg/dL (8.6-10.3); Magnesium 1.5 mg/dL (1.9-2.7); Potassium 3.3 mmol/L (3.5-5.0)
[2021-07-24 06:17] LABS: ABS Eosinophils 0.1 10^3/ul (0-0.6); ABS Lymphocytes 1.8 10^3/ul (1.0-4.8); ABS Monocytes 0.6 10^3/ul (0-0.8); ABS Neutrophils 4.2 10^3/ul (1.5-7.7); Eosinophil % 1.7 %; Lymphocyte % 27.1 %
[2021-07-24] MEDS: ZOSYN 3.375 GM Q8H per EXTENDED INFUSION IV SCH (07:38)
[2021-07-24 08:12] VITALS: BP 130/70
[2021-07-24] MEDS: Heparin 5000 UNITS/ML 1 mL VIAL SUBCUT SCH (08:54)
[2021-07-24] MEDS: Insulin GLARGINE 100 un/ml 10 ml VIAL SUBCUT SCH (08:54)
[2021-07-24] MEDS ORDERED: Potassium Chloride LIQUID 20 MEQ/15 ML LIQUID PO ONE (09:02)
[2021-07-24] MEDS ORDERED: Magnesium Sulfate IV 3 GM in NS 0.9% 100 ml BAG 100 ML IVPB ONE (09:02)
== END 2021-07-24 12:30 | disposition home or self-care (01) | DRG 871 ==
LOC: ED 12:34 → ICU 19:09 → SUATTDRO 20:26 → ICU 20:26 → MEDTELE 07-21 08:51
PROVIDERS: ADMIT Internal Medicine; ATTEND Hospitalist

== ENCOUNTER 2023-07-06 14:25 | Observation (INO) ==
[2023-07-06 15:42] LABS: ABS Basophils 0.2 10^3/uL (0.0-0.1); ABS Eosinophils 0.3 10^3/uL (0.0-0.5); ABS Lymphocytes 2.5 10^3/uL (1.0-4.8); ABS Monocytes 0.7 10^3/uL (0.0-0.9); ABS Neutrophils 4.8 10^3/uL (1.5-7.6); ABS Nucleated RBC 0.01 10^3/ul; Eosinophil % 3.2 %; Hematocrit 35.9 % (35-45); Hemoglobin 12.7 g/dL (11.5-14.3); Lymphocyte % 29.9 %; Mean Corpuscular Hgb Conc 35.3 g/dL (31-36); Mean Platelet Volume 8.6 fL (7.5-11.2); Nucleated Red Blood Cells % 0.1 %/100WBC (0.0-0.8); Platelet Count 308 10^3/uL (150-450); Red Blood Count 4.22 10^6/uL (3.63-4.92); White Blood Count 8.4 10^3/uL (3.8-11.8)
[2023-07-06 15:49] LABS: INR 1.07 (0.83-1.13)
[2023-07-06 16:06] LABS: Albumin 4.5 g/dL (3.2-5.2); Albumin/Globulin Ratio 1.6 (1-3); Calcium 9.1 mg/dL (8.6-10.3); Creatinine, Serum 0.87 mg/dL (0.51-0.95); Globulin 2.9 g/dL (2-4); Potassium 4.2 mmol/L (3.5-5.0); Total Bilirubin 0.6 mg/dL (0.2-1.0); Total Protein 7.4 g/dL (6.4-8.9)
[2023-07-06] MEDS ORDERED: Lactated Ringers 1000 ml BAG 1,000 ML IV ONE (16:33)
[2023-07-06] MEDS ORDERED: Iodixanol (CONTRAST) 320 MG/ML 100 ML SDV IV ONE (16:40)
[2023-07-06] MEDS ORDERED: Acetaminophen IV 1 GM/100ML 1,000 MG/100 ML BAG IV ONE (18:11)
[2023-07-06] MEDS ORDERED: Piperacillin/Tazobac 3.375 BAG 3.375 GM/100 ML BAG IV ONE (18:21)
[2023-07-06] MEDS: Enoxaparin 40 MG/0.4 ML SYR SUBCUT SCH (21:38)
[2023-07-06] MEDS ORDERED: Morphine ER 30 mg TAB ** extended release PO PRN (22:47)
[2023-07-06] MEDS ORDERED: Lidocaine PATCH 4% TOPICAL PRN (22:47)
[2023-07-06] MEDS ORDERED: Pantoprazole VIAL 40 MG VIAL IV ONE (22:50)
[2023-07-06] MEDS ORDERED: Zosyn per Pharmacy NOTE FOLLOW UP SCH (23:00)
[2023-07-06] MEDS ORDERED: ZOSYN 3.375 GM Q8H per EXTENDED INFUSION IV SCH (23:00)
[2023-07-06] MEDS ORDERED: Pantoprazole VIAL 40 MG VIAL IV SCH (23:00)
[2023-07-06] MEDS: Morphine ER 30 mg TAB ** extended release PO SCH (23:29)
[2023-07-07] MEDS ORDERED: Dextrose 50% Syringe 50 ml 25 GM/50 ML SYRINGE IV PUSH PRN
[2023-07-07] MEDS ORDERED: Lactated Ringers 1000 ml BAG 1,000 ML IV ONE (03:23)
[2023-07-07 04:36] LABS: Urine Appearance Cloudy; Urine Bilirubin Negative (Negative); Urine Blood Negative (Negative); Urine Color Yellow; Urine Glucose Negative (Negative); Urine Ketones Negative (Negative); Urine Nitrite Negative (Negative); Urine Protein Negative (Negative); Urine Specific Gravity 1.048 (1.002-1.030); Urine Urobilinogen Negative (Negative)
[2023-07-07] MEDS: ZOSYN 3.375 GM Q8H per EXTENDED INFUSION IV SCH ×2 (06:26→15:22)
[2023-07-07 07:06] LABS: ABS Basophils 0.2 10^3/uL (0.0-0.1); ABS Eosinophils 0.3 10^3/uL (0.0-0.5); ABS Lymphocytes 2.8 10^3/uL (1.0-4.8); ABS Monocytes 0.4 10^3/uL (0.0-0.9); ABS Neutrophils 2.3 10^3/uL (1.5-7.6); Eosinophil % 5.1 %; Hematocrit 31.5 % (35-45); Hemoglobin 11.1 g/dL (11.5-14.3); Lymphocyte % 46.7 %; Mean Corpuscular Hgb Conc 35.4 g/dL (31-36); Mean Corpuscular Volume 84.9 fL (80-97); Mean Platelet Volume 8.5 fL (7.5-11.2); Platelet Count 262 10^3/uL (150-450); Red Blood Count 3.71 10^6/uL (3.63-4.92); Red Cell Distribution Width 13.9 % (12-17)
[2023-07-07 07:17] LABS: Urine Bacteria Absent (Absent); Urine Red Blood Cell Trace(0-2/hpf) (Absent); Urine Squamous Epithelial Cell Present (Absent); Urine White Blood Cell 2+(11-20/hpf) (Absent)
[2023-07-07 07:18] LABS: Calcium 8.5 mg/dL (8.6-10.3); Creatinine, Serum 1.01 mg/dL (0.51-0.95); Potassium 3.1 mmol/L (3.5-5.0)
[2023-07-07] MEDS ORDERED: Potassium Chlor 20 meq TAB.ER PO ONE (07:38)
[2023-07-07 07:47] LABS: Magnesium 0.9 mg/dL (1.9-2.7); Phosphorus 4.5 mg/dL (2.5-5.0)
[2023-07-07] MEDS ORDERED: Magnesium Sulf 4 GM/100 ML IV 4,000 MG/100 ML BAG IVPB ONE (07:48)
[2023-07-07] MEDS ORDERED: Pantoprazole VIAL 40 MG VIAL IV SCH (09:00)
[2023-07-07] MEDS ORDERED: Iodixanol (CONTRAST) 320 MG/ML 100 ML SDV IV ONE (13:46)
[2023-07-07] MEDS: Insulin NPH 100 units/ml SUBCUT SCH ×2 (14:00→20:00)
[2023-07-07] MEDS: Pantoprazole VIAL 40 MG VIAL IV SCH ×2 (14:52→22:56)
[2023-07-07] MEDS: Morphine ER 30 mg TAB ** extended release PO SCH ×3 (15:21→23:42)
[2023-07-07] MEDS: Enoxaparin 40 MG/0.4 ML SYR SUBCUT SCH (22:55)
[2023-07-08 06:26] LABS: ABS Basophils 0.1 10^3/uL (0.0-0.1); ABS Eosinophils 0.4 10^3/uL (0.0-0.5); ABS Lymphocytes 2.9 10^3/uL (1.0-4.8); ABS Monocytes 0.4 10^3/uL (0.0-0.9); ABS Neutrophils 2.4 10^3/uL (1.5-7.6); ABS Nucleated RBC 0.01 10^3/ul; Eosinophil % 7.2 %; Hemoglobin 11.9 g/dL (11.5-14.3); Lymphocyte % 45.6 %; Mean Corpuscular Hemoglobin 29.5 pg (27-33); Mean Corpuscular Hgb Conc 34.9 g/dL (31-36); Mean Corpuscular Volume 84.5 fL (80-97); Mean Platelet Volume 8.7 fL (7.5-11.2); Nucleated Red Blood Cells % 0.1 %/100WBC (0.0-0.8); Platelet Count 264 10^3/uL (150-450); Red Blood Count 4.03 10^6/uL (3.63-4.92); White Blood Count 6.3 10^3/uL (3.8-11.8)
[2023-07-08 07:01] LABS: Calcium 8.8 mg/dL (8.6-10.3); Creatinine, Serum 0.91 mg/dL (0.51-0.95); Magnesium 1.4 mg/dL (1.9-2.7); Potassium 3.8 mmol/L (3.5-5.0); eGFR CKD-EPI 69.1 (>60)
[2023-07-08] MEDS: Insulin NPH 100 units/ml SUBCUT SCH ×2 (07:56→19:15)
[2023-07-08] MEDS: Morphine ER 30 mg TAB ** extended release PO SCH ×2 (09:32→21:50)
[2023-07-08] MEDS ORDERED: Magnesium Sulf 4 GM/100 ML IV 4,000 MG/100 ML BAG IVPB ONE (14:59)
[2023-07-08] MEDS: Pantoprazole VIAL 40 MG VIAL IV SCH ×2 (15:04→21:52)
[2023-07-08] MEDS ORDERED: Midazolam 10 mg/10 ml VIAL 1 mg/ml 10 ml VIAL (10 mg) ONE (16:03)
[2023-07-08] MEDS ORDERED: fentaNYL 100 mcg/2 ml 50 MCG/ML VIAL ONE (16:03)
[2023-07-08] MEDS ORDERED: fentaNYL 100 mcg/2 ml 50 MCG/ML VIAL IV SLOW PU ONE ×2 (16:34→16:35)
[2023-07-08] MEDS ORDERED: Midazolam 10 mg/10 ml VIAL 1 mg/ml 10 ml VIAL (10 mg) IV SLOW PU ONE (16:35)
[2023-07-08] MEDS: Enoxaparin 40 MG/0.4 ML SYR SUBCUT SCH (21:50)
[2023-07-09 07:49] LABS: Magnesium 2.4 mg/dL (1.9-2.7); Potassium 3.8 mmol/L (3.5-5.0)
[2023-07-09 07:54] LABS: Creatinine, Serum 0.99 mg/dL (0.51-0.95); eGFR CKD-EPI 62.5 (>60)
[2023-07-09] MEDS: Insulin NPH 100 units/ml SUBCUT SCH (08:20)
[2023-07-09] MEDS: Pantoprazole VIAL 40 MG VIAL IV SCH (08:21)
[2023-07-09] MEDS: Morphine ER 30 mg TAB ** extended release PO SCH (09:01)
[2023-07-09 10:15] VITALS: BP 139/73
== END 2023-07-09 12:50 | disposition home or self-care (01) ==
LOC: ED 14:25 → EDHOLD 14:25 → SUATTDRO 20:35 → SSU 07-07 03:11
PROVIDERS: ADMIT Internal Medicine; ATTEND Internal Medicine